=== PATIENT | female | born 1940 | race Caucasian/White ===

== ENCOUNTER → 2024-03-19 | Outpatient (CLI) | payer MEDICARE, BC, SELFPAY ==
[2024-03-19 17:12] LABS: Absolute Neutrophil Count 5.5 X10^3/uL (2.0-7.7); Basophil# 0.06 X10^3/uL; Basophil% 0.6 % (0-1); Eosinophil# 0.34 X10^3/uL; Eosinophils% 3.7 % (0-5); Hematocrit 41.2 % (37-47); Hemoglobin 13.8 g/dL (12.0-15.0); Mean Corp Hgb Conc 33.5 g/dL (32-36); Mean Corpuscular Hgb 29.2 pg (27.0-32.0); Mean Corpuscular Volume 87.3 fL (81-99); Mean Platelet Vol. 9.1 fl (6.2-12.0); Monocyte# 0.87 X10^3/uL; Monocyte% 9.4 % (0-10); NRBC Flagged by Analyzer 0 % (0-5); Neutrophil # 5.45 X10^3/uL (2.7-7.7); Neutrophil % 58.8 % (47-70); Platelet Count 296 K/mm3 (150-450); RBC Distribution Width SD 41.4 fl (35.1-43.9); Red Blood Count 4.72 M/mm3 (4.2-5.4); White Blood Count 9.3 K/mm3 (4.4-11.0)
[2024-03-19 17:46] LABS: ALB/GLOB Ratio 1.1 RATIO (0.9-2.4); AST(SGOT) 13 U/L (15-37); Alanine Aminotransfer ALT/SGPT 17 U/L (13-56); Albumin, Serum 3.8 g/dL (3.2-5.0); Alkaline Phosphatase 98 U/L (45-117); Anion Gap 5 (5-15); BUN 14 mg/dL (7-18); Calcium,Total 9.8 mg/dL (8.5-10.1); Chloride 103 mmol/L (98-107); Creatinine, Serum 0.87 mg/dL (0.55-1.02); EST Glomerular Filtration Rate 66 mL/min (>60); Est Glom Filt Rate - Afr Amer 80 mL/min (>60); Globulin 3.6 g/dL (2.2-4.2); Glucose 97 mg/dL (74-106); Protein, Total 7.4 g/dL (6.4-8.2); Sodium Level 137 mmol/L (136-145)
[2024-03-19 18:18] LABS: Hepatitis C Antibody Non-Reactive (Nonreactive); Vitamin D,25 Hydroxy 73.8 ng/mL
== END | disposition home or self-care (01) ==
LOC: LAB 16:55
PROVIDERS: PCP Internal Medicine; Referring Provider Family Medicine Geriatric Medicine; Visit Provider Family Medicine Geriatric Medicine
DX: Z13.89 Encounter for screening for other disorder (principal); E78.5 Hyperlipidemia, unspecified; E03.9 Hypothyroidism, unspecified; E55.9 Vitamin D deficiency, unspecified
CPT/HCPCS: 36415; 80053; 82306; 84443; 85025; 86803

== ENCOUNTER → 2024-03-31 | Outpatient (CLI) | payer MEDICARE, BC, SELFPAY | END | disposition home or self-care (01) | PROVIDERS: PCP Internal Medicine; Visit Provider Family Medicine Geriatric Medicine | DX: N39.0 Urinary tract infection, site not specified (principal); G31.84 Mild cognitive impairment of uncertain or unknown etiology | CPT/HCPCS: 87086; 87088; 87186 ==

== ENCOUNTER → 2024-04-21 | Outpatient (CLI) | payer MEDICARE, BC, SELFPAY ==
--- NOTE | 2024-04-21 15:15 | MRI_ITS ---
PROCEDURE: BRAIN WITHOUT CONTRAST REASON FOR EXAM: Memory issues. TECHNIQUE: Multiplanar, multisequence MRI of the brain without intravenous gadolinium-based contrast. COMPARISON: None. FINDINGS: There is prominence of the ventricles and sulci indicative of atrophy. There is hyperintense T2/FLAIR signal in the periventricular and subcortical white matter likely related to chronic small vessel ischemic disease. No midline shift, mass effect, or extra-axial fluid collections are identified. No diffusion restriction is identified on diffusion-weighted imaging to suggest acute/subacute ischemic changes. No acute territorial infarction or acute intracranial hemorrhage is present. Optic chiasm and cerebellar tonsils are within normal range. There is flattening of the pituitary gland related to partial empty sella. Bilateral orbits are intact. Major vascular flow voids are present. MRI/Brain without Contrast IMPRESSION: 1. No acute intracranial process. 2. Atrophy. 3. Chronic small vessel ischemic disease. 4. Partial empty sella. Reading Location[id number]
== END | disposition home or self-care (01) ==
LOC: MRI 15:03
PROVIDERS: PCP Family Medicine Geriatric Medicine; Referring Provider Family Medicine Geriatric Medicine; Visit Provider Family Medicine Geriatric Medicine
DX: G31.84 Mild cognitive impairment of uncertain or unknown etiology (principal)
CPT/HCPCS: 70551

== ENCOUNTER → 2024-05-14 | Outpatient (CLI) | payer MEDICARE, BC, SELFPAY ==
--- NOTE | 2024-05-14 15:59 | BD_ITS ---
PROCEDURE: DEXA BONE DENSITY STUDY REASON FOR EXAM: F, age 83 y/o . Postmenopausal. TECHNIQUE: DEXA scan of the lumbar spine and left hip. COMPARISON: None. FINDINGS: Lumbar Spine (L1-L4): g/cm2 (1.102)/T-score (0.4)/Z-score (3.2) findings are suggestive of normal with a low fracture risk. Left Femur Total: g/cm2 (0.862)/T-score (-0.7)/Z-score (1.6) Left Femoral Neck: g/cm2 (0.68)/T-score (-1.5)/Z-score (0.9) BD/Dexa Bone Density Study IMPRESSION: The patient is considered osteopenic as outlined below according to World Alex Organization (WHO) criteria with a low fracture risk. Reading Location: [id number]
== END | disposition home or self-care (01) ==
PROVIDERS: PCP Family Medicine Geriatric Medicine; Referring Provider Family Medicine Geriatric Medicine; Visit Provider Family Medicine Geriatric Medicine
DX: Z78.0 Asymptomatic menopausal state (principal); M85.80 Other specified disorders of bone density and structure, unspecified site
CPT/HCPCS: 77080

== ENCOUNTER → 2024-05-20 | Outpatient (CLI) | payer MEDICARE, BC, SELFPAY ==
--- NOTE | 2024-05-20 17:22 | RAD_ITS ---
PROCEDURE: Lumbar spine radiographs REASON FOR EXAM: PAIN TECHNIQUE: 5 view(s) of the thoracic and lumbar spine. COMPARISON: None. FINDINGS: See impression RAD/L/S Spine Min 4 Views IMPRESSION: Vertebral body heights are within normal limits. Grade 1 anterolisthesis of L3 -4 and L4-5. Mild lower thoracic dextroscoliosis. Moderate/advanced lower lumbar facet arthropathy from L3 through S1. Mild dege nerative changes of the sacroiliac joints. Calcified abdominal aorta. Reading Location: [facility]
== END | disposition home or self-care (01) ==
LOC: POLAB3 17:12 → RAD 17:17
PROVIDERS: PCP Family Medicine Geriatric Medicine; Visit Provider Family Medicine Geriatric Medicine
DX: G30.9 Alzheimer's disease, unspecified (principal); M54.50 Low back pain, unspecified
CPT/HCPCS: 36415; 72110

== ENCOUNTER → 2024-06-03 | Outpatient (CLI) | payer MEDICARE, BC, SELFPAY ==
[2024-06-03 17:33] LABS: Absolute Neutrophil Count 7.4 X10^3/uL (2.0-7.7); Basophil# 0.06 X10^3/uL; Basophil% 0.5 % (0-1); Eosinophil# 0.31 X10^3/uL; Eosinophils% 2.8 % (0-5); Hematocrit 43.7 % (37-47); Hemoglobin 14.4 g/dL (12.0-15.0); Lymphocyte % 22.4 % (19-41); Mean Corpuscular Hgb 29.9 pg (27.0-32.0); Mean Corpuscular Volume 90.7 fL (81-99); Mean Platelet Vol. 9.5 fl (6.2-12.0); Monocyte# 0.79 X10^3/uL; Monocyte% 7.1 % (0-10); NRBC Flagged by Analyzer 0 % (0-5); Neutrophil # 7.44 X10^3/uL (2.7-7.7); Neutrophil % 66.8 % (47-70); Platelet Count 300 K/mm3 (150-450); RBC Distribution Width CV 12.8 % (11.6-14.6); RBC Distribution Width SD 42.2 fl (35.1-43.9); Red Blood Count 4.82 M/mm3 (4.2-5.4); White Blood Count 11.1 K/mm3 (4.4-11.0)
[2024-06-03 20:04] LABS: ALB/GLOB Ratio 1.5 RATIO (0.9-2.4); AST(SGOT) 15 U/L (<=31); Alanine Aminotransfer ALT/SGPT 12 U/L (<=34); Albumin, Serum 4.2 g/dL (3.4-4.8); Alkaline Phosphatase 85 U/L (35-104); Anion Gap 9 (5-15); BUN 19 mg/dL (4-19); BUN/Creat Ratio 21.1 RATIO (10-20); Calcium,Total 10.5 mg/dL (7.6-11.0); Carbon Dioxide 27.3 mmol/L (21.0-32.0); Chloride 103 mmol/L (98-108); Creatinine, Serum 0.88 mg/dL (0.70-1.20); EST Glomerular Filtration Rate 66 (>60); Globulin 2.7 g/dL (2.2-4.2); Glucose 98 mg/dL (70-99); Potassium 4.5 mmol/L (3.3-5.1); Protein, Total 6.9 g/dL (5.9-8.4); Sodium Level 139 mmol/L (133-145); Total Bilirubin 0.21 mg/dL (0.00-1.30)
== END | disposition home or self-care (01) ==
LOC: LAB 16:49
PROVIDERS: PCP Family Medicine Geriatric Medicine; Referring Provider Family Medicine Geriatric Medicine; Visit Provider Family Medicine Geriatric Medicine
DX: R11.0 Nausea (principal)
CPT/HCPCS: 36415; 80053; 85025

== ENCOUNTER 2024-06-14 12:19 | Emergency (ER) | payer MEDICARE, BC, SELFPAY ==
[2024-06-14 12:20] VITALS: BP 154/71; PULSE 73; RESP 16; TEMP 36.6; O2SAT 99; BMI 30.3
--- NOTE | 2024-06-14 12:31 | RAD_ITS ---
PROCEDURE: KNEE 4 OR MORE VIEWS 06/14/2024 REASON FOR EXAM: KNEE pain. TECHNIQUE: 4 views of the left knee COMPARISON: None. FINDINGS: Bones: Prior left total knee arthroplasty. No acute fracture or suspicious osseous lesion. Joints: Total knee arthroplasty in satisfactory alignment. Effusion: No effusion. Soft tissues: Soft tissues are unremarkable. RAD/Knee 4 or More Views IMPRESSION: NEGATIVE KNEE SERIES Reading Location: [id number]
--- NOTE | 2024-06-14 12:33 | RAD_ITS ---
PROCEDURE: KNEE 4 OR MORE VIEWS 06/14/2024 REASON FOR EXAM: FALL TECHNIQUE: 4 views of the right knee COMPARISON: None. FINDINGS: Bones: Prior right total knee arthroplasty. No acute osseous fracture. Mild diffuse osseous demineralization. Joints: Total knee arthroplasty in satisfactory alignment. Effusion: No effusion. Soft tissues: Soft tissues are unremarkable. RAD/Knee 4 or More Views IMPRESSION: NEGATIVE KNEE SERIES Reading Location: [id number]
--- NOTE | 2024-06-14 12:43 | RAD_ITS ---
PROCEDURE: PELVIS 1 OR 2 VIEWS 06/14/2024 REASON FOR EXAM: 83-year-old female, FALL TECHNIQUE: 1 view(s) of the pelvis. COMPARISON: L-spine radiographs 05/20/2024. FINDINGS: Hardware: Prior right total hip arthroplasty. Bones: No acute osseous fracture. No suspicious osseous lesion. 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 Soft tissues: Soft tissues are unremarkable. Other: Stable radiopaque foreign body overlying the right iliac crest. RAD/Pelvis 1 or 2 Views IMPRESSION: NO EVIDENCE OF PELVIC FRACTURE Reading Location: [id number]
[2024-06-14] MEDS: Acetaminophen 500 MG Tablet 1000 MG PO (12:59)
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
[2024-06-14 13:29] VITALS: BP 141/77; PULSE 71; RESP 16; TEMP 36.8; O2SAT 100
== END 2024-06-14 13:30 | disposition home or self-care (01) ==
PROVIDERS: Emergency Provider Surgery; PCP Family Medicine Geriatric Medicine; Visit Provider Surgery
DX: S80.01XA Contusion of right knee, initial encounter (principal); S80.02XA Contusion of left knee, initial encounter; W01.0XXA Fall on same level from slipping, tripping and stumbling without subsequent striking against object, initial encounter; Y93.01 Activity, walking, marching and hiking; Y92.020 Kitchen in mobile home as the place of occurrence of the external cause; Z96.641 Presence of right artificial hip joint; Z96.653 Presence of artificial knee joint, bilateral
CPT/HCPCS: 72170; 73564; 99284

== ENCOUNTER 2024-06-17 14:54 | Outpatient (CLI) | payer MEDICARE, BC, SELFPAY ==
[2024-06-17 15:35] LABS: Absolute Lymphocyte Count 1.94 X10^3/uL (0.83-4.51); Absolute Neutrophil Count 5.3 X10^3/uL (2.0-7.7); Basophil# 0.06 X10^3/uL; Basophil% 0.7 % (0-1); Eosinophil# 0.38 X10^3/uL; Eosinophils% 4.5 % (0-5); Hematocrit 40.1 % (37-47); Hemoglobin 13.5 g/dL (12.0-15.0); Lymphocyte # 1.94 X10^3/ul (0.83-4.51); Lymphocyte % 22.9 % (19-41); Mean Corp Hgb Conc 33.7 g/dL (32-36); Mean Corpuscular Hgb 30.1 pg (27.0-32.0); Mean Corpuscular Volume 89.3 fL (81-99); Mean Platelet Vol. 9.5 fl (6.2-12.0); Monocyte# 0.82 X10^3/uL; Monocyte% 9.7 % (0-10); NRBC Flagged by Analyzer 0 % (0-5); Neutrophil # 5.26 X10^3/uL (2.7-7.7); Platelet Count 267 K/mm3 (150-450); RBC Distribution Width CV 12.8 % (11.6-14.6); Red Blood Count 4.49 M/mm3 (4.2-5.4); White Blood Count 8.5 K/mm3 (4.4-11.0)
[2024-06-17 16:42] LABS: ALB/GLOB Ratio 1.4 RATIO (0.9-2.4); AST(SGOT) 16 U/L (<=31); Alanine Aminotransfer ALT/SGPT 11 U/L (<=34); Albumin, Serum 4.1 g/dL (3.4-4.8); Alkaline Phosphatase 81 U/L (35-104); Anion Gap 10 (5-15); BUN 18 mg/dL (4-19); BUN/Creat Ratio 20.3 RATIO (10-20); Calcium,Total 10.3 mg/dL (7.6-11.0); Carbon Dioxide 25.6 mmol/L (21.0-32.0); Chloride 101 mmol/L (98-108); Creatinine, Serum 0.88 mg/dL (0.70-1.20); EST Glomerular Filtration Rate 66 (>60); Globulin 2.8 g/dL (2.2-4.2); Glucose 92 mg/dL (70-99); Potassium 4.7 mmol/L (3.3-5.1); Protein, Total 6.9 g/dL (5.9-8.4); Sodium Level 137 mmol/L (133-145); Total Bilirubin 0.25 mg/dL (0.00-1.30); Vitamin D,25 Hydroxy 83.9 ng/mL (30-100)
== END 2024-06-17 23:59 | disposition home or self-care (01) ==
LOC: LAB 14:56
PROVIDERS: PCP Family Medicine Geriatric Medicine; Referring Provider Family Medicine Geriatric Medicine; Visit Provider Family Medicine Geriatric Medicine
DX: E55.9 Vitamin D deficiency, unspecified (principal); R53.83 Other fatigue
CPT/HCPCS: 36415; 80053; 82306; 84443; 85025

== ENCOUNTER → 2024-10-20 | Outpatient (CLI) | payer MEDICARE, BC, SELFPAY ==
--- OUTSIDE RECORDS SUMMARY | 2024-10-20 17:41 | XMS RPT_ITS | CCD ---
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 Constantine Umana Attending Provider [phone] Oziel CORONA, Dr. Constantine Umana Referring Provider Oziel CORONA, Dr. Constantine Umana Primary Care Provider Alicia AGUILERA, Dr. Garcia Emergency Provider ASIA SPENCE MD Primary Care Unavailable ASIA SPENCE MD Consulting Unavailable ASIA SPENCE MD Admitting Unavailable ASIA SPENCE MD Attending Unavailable PROVIDER, UNKNOWN Consulting Unavailable PROVIDER, UNKNOWN Consulting Unavailable ASIA SPENCE MD Primary Care Unavailable ASIA SPENCE MD Consulting Unavailable ASIA SPENCE MD Admitting Unavailable ASIA SPENCE MD Attending Unavailable PROVIDER, UNKNOWN Consulting Unavailable PROVIDER, UNKNOWN Consulting Unavailable ASIA SPENCE MD Primary Care Unavailable ASIA SPENCE MD Consulting Unavailable ASIA SPNECE MD Admitting Unavailable ASIA SPENCE MD Attending Unavailable PROVIDER, UNKNOWN Consulting Unavailable PROVIDER, UNKNOWN Consulting Unavailable ASIA SPENCE MD Consulting Unavailable FROYLAN LOUIS DR Admitting Unavailable FROYLAN LOUIS DR Attending Unavailable FROYLAN LOUIS DR Primary Care Unavailable PROVIDER, UNKNOWN Consulting Unavailable PROVIDER, UNKNOWN Consulting Unavailable ASIA SPENCE MD Consulting Unavailable FROYLAN LOUIS DR Admitting Unavailable FROYLAN LOUIS DR Attending Unavailable FROYLAN LOUIS DR Primary Care Unavailable PROVIDER, UNKNOWN Consulting Unavailable PROVIDER, UNKNOWN Consulting Unavailable ASIA SPENCE MD Consulting Unavailable FROYLAN LOUIS DR Admitting Unavailable FROYLAN LOUIS DR Attending Unavailable FROYLAN LOUIS DR Primary Care Unavailable PROVIDER, UNKNOWN Consulting Unavailable PROVIDER, UNKNOWN Consulting Unavailable ASIA SPENCE MD Consulting Unavailable FROYLAN LOUIS DR Primary Care Unavailable FROYLAN LOUIS DR Admitting Unavailable FROYLAN LOUIS DR Attending Unavailable VERNELL BUSTOS MD Referring Unavailable PROVIDER, UNKNOWN Consulting Unavailable PROVIDER, UNKNOWN Consulting Unavailable ANDREW, MILTON C Admitting Unavailable ASIA SPENCE MD Referring Unavailable ASIA SPENCE MD Consulting Unavailable ANDREW, MILTON C Primary Care Unavailable ANDREW, MILTON C Attending Unavailable PROVIDER, UNKNOWN Consulting Unavailable PROVIDER, UNKNOWN Consulting Unavailable ALEJANDRA, CECY PAC Attending Unavailable ALEJANDRA CECY PAC Admitting Unavailable ASIA SPENCE MD Consulting Unavailable ALEJANDRA, CECY PAC Primary Care Unavailable PROVIDER, UNKNOWN Consulting Unavailable PROVIDER, UNKNOWN Consulting Unavailable ASIA SPENCE MD Primary Care Unavailable ASIA SPENCE MD Consulting Unavailable ASIA SPENCE MD Admitting Unavailable ASIA SPENCE MD Attending Unavailable PROVIDER, UNKNOWN Consulting Unavailable PROVIDER, UNKNOWN Consulting Unavailable ASIA SPENCE MD Primary Care Unavailable ASIA SPENCE MD Consulting Unavailable ASIA SPENCE MD Admitting Unavailable ASIA SPENCE MD Attending Unavailable PROVIDER, UNKNOWN Consulting Unavailable PROVIDER, UNKNOWN Consulting Unavailable ASIA SPENCE MD Consulting Unavailable ASIA SPENCE MD Primary Care Unavailable ASIA SPENCE MD Attending Unavailable ASIA SPENCE MD Admitting Unavailable PROVIDER, UNKNOWN Consulting Unavailable PROVIDER, UNKNOWN Consulting Unavailable ASIA SPENCE MD Primary Care Unavailable ASIA SPENCE MD Consulting Unavailable ASIA SPENCE MD Attending Unavailable ASIA SPENCE MD Admitting Unavailable PROVIDER, UNKNOWN Consulting Unavailable PROVIDER, UNKNOWN Consulting Unavailable ASIA SPENCE MD Consulting Unavailable ASIA SPENCE MD Primary Care Unavailable ASIA SPENCE MD Attending Unavailable ASIA SPENCE MD Admitting Unavailable PROVIDER, UNKNOWN Consulting Unavailable PROVIDER, UNKNOWN Consulting Unavailable ASIA SPENCE MD Primary Care Unavailable ASIA SPENCE MD Consulting Unavailable ASIA SPENCE MD Admitting Unavailable ASIA SPENCE MD Attending Unavailable PROVIDER, UNKNOWN Consulting Unavailable PROVIDER, UNKNOWN Consulting Unavailable ASIA SPENCE MD Consulting Unavailable WILBER BOYD MD Attending Unavailable WILBER BOYD MD Admitting Unavailable ASIA SPENCE MD Referring Unavailable WILBER BOYD MD Primary Care Unavailable PROVIDER, UNKNOWN Consulting Unavailable PROVIDER, UNKNOWN Consulting Unavailable ASIA SPENCE MD Primary Care Unavailable ASIA SPENCE MD Consulting Unavailable ASIA SPENCE MD Admitting Unavailable ASIA SPENCE MD Attending Unavailable PROVIDER, UNKNOWN Consulting Unavailable PROVIDER, UNKNOWN Consulting Unavailable Oziel, Constantine Chi Attending Unavailable Reza Liao Primary Care Unavailable Oziel, Constantine Chi Attending Unavailable Oziel, Constantine Chi Referring Unavailable Oziel, Constantine Chi Primary Care Unavailable Oziel, Constantine Chi Referring Unavailable Oziel, Constantine Chi Primary Care Unavailable Oziel, Constantine Chi Attending Unavailable Oziel, Constantine Chi Primary Care Unavailable Oziel, Constantine Chi Attending Unavailable Oziel, Constantine Chi Referring Unavailable Oziel, Constantine Chi Primary Care Unavailable Oziel, Constantine Chi Attending Unavailable Violetta Rodrigueza Attending Unavailable Jean-Claudeys Ghislaine Referring Unavailable Lona Constantino Primary Care Unavailable Jose Vargas Attending Unavailabl e Oziel, Constantine Chi Primary Care Unavailable Oziel, Constantine Chi Referring Unavailable Oziel, Constantine Chi Primary Care Unavailable Oziel, Constantine Chi Attending Unavailable Oziel, Constantine Chi Attending Unavailable Reza Liao Primary Care Unavailable Oziel, Constantine Chi Referring Unavailable Allergies Allergy Classification Reported Allergen(s) Allergy Type Date of Onset Reaction(s) Facility (3 sources) Sulfonamides (Antibiotic) Drug allergy (disorder) [facility] Repository (2 sources) ANESTHETIC, AMIDE Drug allergy (disorder) [facility] Repository (1 source) predniSONE Drug Allergy 5 Nausea [place] (1 source) Sulfonamides (Antibiotic) Allergy to substance 5 PT UNSURE OF REACTION [place] (1 source) predniSONE Drug Allergy 5 [place] Repository (1 source) Sulfonamides (Antibiotic) Drug allergy (disorder) 5 [place] Repository (1 source) Anesthetics - Amide Type - Select A Drug allergy (disorder) 5 [place] Repository Problems Active Problems Problem Classification Problem Date Documented Date Episodic/Chronic Conditions associated with dizziness or vertigo (1 source) Dizziness and giddiness; Translations: [Dizziness and giddiness] Onset: 10-14-2024 Episodic Delirium, dementia, and amnestic and other cognitive disorders (1 source) Alzheimer's disease, unspecified; Translations: [Alzheimer's disease, unspecified] Onset: 05-28-2024 Chronic E Codes: Fall (1 source) Unspecified fall, initial encounter; Translations: [Accident due to mechanical fall without injury] 06-14-2024 Episodic Malaise and fatigue (2 sources) Weakness; Translations: [Other fatigue] Onset: 07-04-2024 Episodic Osteoarthritis (1 source) Unilateral primary osteoarthritis, right hip; Translations: [Unilateral primary osteoarthritis, right hip] Onset: 10-09-2023 Chronic Osteoporosis (3 sources) Age-related osteoporosis without current pathological fracture; Translations: [Age-related osteoporosis without current pathological fracture] Onset: 09-18-2023 Chronic Other hereditary and degenerative nervous system conditions (1 source) Mild cognitive impairment, so stated; Translations: [Mild cognitive impairment of uncertain or unknown etiology] Onset: 05-06-2024 Chronic Other nervous system disorders (1 source) Unsteadiness on feet; Translations: [Unsteadiness on feet] Onset: 10-14-2024 Episodic Superficial injury; contusion (1 source) Contusion of knee; Translations: [Contusion of unspecified knee, initial encounter] 06-14-2024 Episodic Thyroid disorders (4 sources) Hypothyroidism, unspecified; Translations: [Hypothyroidism, unspecified] Onset: 09-21-2023 Chronic Unclassified (2 sources) Low back pain, unspecified; Translations: [Low back pain, unspecified] Onset: 06-11-2024 Unclassified (1 source) Other intervertebral disc degeneration, 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; Translations: [Other intervertebral disc degeneration, 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] Onset: 06-11-2024 Past or Other Problems Problem Classification Problem Date Documented Da te Episodic/Chronic Cardiac dysrhythmias (3 sources) Palpitations; Translations: [Palpitations] Onset: 02-01-2024 Episodic Gastrointestinal hemorrhage (1 source) Hemorrhage of anus and rectum; Translations: [Hemorrhage of anus and rectum] Onset: 02-26-2024 Episodic Genitourinary symptoms and ill-defined conditions (3 sources) Unspecified symptoms and signs involving the genitourinary system; Translations: [Unspecified symptoms and signs involving the genitourinary system] Onset: 02-26-2024 Episodic Nausea and vomiting (1 source) Nausea; Translations: [Nausea] Onset: 06-08-2024 Episodic Other aftercare (1 source) 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; Translations: [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] Onset: 10-09-2023 Episodic Other injuries and conditions due to external causes (1 source) Unspecified injury of unspecified lower leg, initial encounter; Translations: [Unspecified injury of unspecified lower leg, initial encounter] Onset: 06-18-2024 Episodic Other screening for suspected conditions (not mental disorders or infectious disease) (1 source) Encounter for screening for other disorder; Translations: [Encounter for screening for other disorder] Onset: 04-09-2024 Episodic Residual codes; unclassified (1 source) Asymptomatic menopausal state; Translations: [Asymptomatic menopausal state] Onset: 05-25-2024 Episodic Unclassified (1 source) Low back pain, unspecified; Translations: [Low back pain, unspecified] Onset: 06-11-2024 Urinary tract infections (1 source) Urinary tract infection, site not specified; Translations: [Urinary tract infection, site not specified] Onset: 04-21-2024 Episodic Results Test Name Value Interpretation Reference Range Facility URINE CULTURE [CCL]on 2024 Bacteria identified Cx Nom (U) URCUL See Results Below See Below CULTURE, URINE ESCHERICHIA COLI >=100,000 CFU/ml Escherichia coli ORGANISM: ESCHERICHIA COLI ANTIBIOTIC LISA DILUTN LISA INTERP Ampicillin 4 Susceptible Cefazolin <=4 Susceptible For uncomplicated urinary tract infections, cefazolin results can be used to pre Ceftriaxone <=1 Susceptible Cefepime <=1 Susceptible Ertapenem <=0.5 Susceptible Meropenem <=0.25 Susceptible Ampicillin/Sulbact <=2 Susceptible Piperacillin/Tazobac <=4 Susceptible Gentamicin <=1 Susceptible Tobramycin <=1 Susceptible Trimeth sulfameth <=20 Susceptible Ciprofloxacin <=0.25 Susceptible Nitrofurantoin <=16 Susceptible This test was developed and its performance characteristics determined by the [facility]'s [facility] [place] ([facility]). It has not been cleared or approved by the FDA. [facility] is regulated under CLIA as qualified to perform high-complexity testing. This test is used for clinical purposes. It should not be regarded as investigational or for research. SOURCE: Urine (Nonspecific) [facility] [address] [place] [address] Ethan Pedersen III, M.D. [id number] SEND TO IC YES Normal [facility] Comment on above: Performed By: #### 2 [id number] ####[facility],[address] [place] [address] 10571 Bacteria Ur Culton 5 Bacteria identified Cx Nom (U) ORGANISM ID: 1 >=100,000 CFU/ml Escherichia coli ORGANISM ID: 1 (ESCHERICHIA COLI) ANTIBIOTIC INTERPRETATION LISA STATUS REFERENCE RANGE Ampicillin S 4 F Susceptible <=8 , Intermediate >8 , Resistant >16 Cefazolin S <=4 F Susceptible 0-16 , Intermediate <0 or >16 , Resistant >16 For uncomplicated urinary tract infections, cefazolin results can be used to predict susceptibility or resistance to cephalexin. Ceftriaxone S <=1 F Susceptible <=1 , Intermediate >1 , Resistant >=4 Cefepime S <=1 F Susceptible <=2 , Susceptible-Dose Dependent >2 , Resistant >=16 Ertapenem S <=0.5 F Susceptible <=0.5 , Intermediate >.5 , Resistant >1 Meropenem S <=0.25 F Susceptible <=1 , Intermediate >1 , Resistant >2 Ampicillin/Sulbact S <=2 F Susceptible <=8 , Intermediate >8 , Resistant >16 Piperacillin/Tazobac S <=4 F Susceptible <16 , Susceptible-Dose Dependent >=16 , Resistant >=32 Gentamicin S <=1 F Susceptible <=2 , Intermediate >2 , Resistant >=8 Tobramycin S <=1 F Susceptible <4 , Intermediate >=4 , Resistant >=8 Trimeth sulfameth S <=20 F Susceptible <=40 , Resistant >40 Ciprofloxacin S <=0.25 F Susceptible <0.5 , Intermediate >=.5 , Resistant >=1 Nitrofurantoin S <=16 F Susceptible <=32 , Intermediate >32 , Resistant >64 Abnormal [facility] Comment on above: Performed By: #### 6 30-4 #### [facility] CLIA [id number] [address] [place] [address] OF [facility] CBC + DIFFon 09-02-2024 Baso # 0.03 x10EE3/UL Normal 0.00 - 0.10 [facility] Comment on above: Performed By: #### 2 94667 #### [place] [id number] Basophils/100 WBC (Bld) 0.4 % Normal 0.0 - 2.0 [facility] Comment on above: Performed By: #### 2 72459 #### [facility],[address] [place] [address] CBC + DIFF Normal [facility] Comment on above: Result Comment: CBC- COMPLETE BLOOD COUNT Performed By: #### 2 99820 #### [facility],[address] [place] [address] EO # 0.30 x10EE3/UL Normal 0.00 - 0.50 [facility] Comment on above: Performed By: #### 2 28508 #### [facility],[address] [place] [address] 22035 Eosinophils/100 WBC (Bld) 3.3 % Normal 0.0 - 7.0 [facility] Comment on above: Performed By: #### 2 54440 #### [facility],[address] [place] [address] Erythrocyte distribution width (RBC) [Ratio] 13.3 % Normal 12.0 - 15.6 [facility] Comment on above: Performed By: #### 2 10180 #### [facility],[address] [place] [address] Hematocrit (Bld) [Volume fraction] 39.9 % Normal 34.0 - 46.0 [facility] Comment on above: Performed By: #### 2 01667 #### [facility],[address] [place] [address] Hemoglobin (Bld) [Mass/Vol] 14.1 g/dL Normal 12.0 - 16.0 [facility] Comment on above: Performed By: #### 2 77950 #### [facility],[address] [place] [address] Lymph # 2.09 x10EE3/UL Normal 0.80 - 2.80 [facility] Comment on above: Performed By: #### 2 48148 #### [facility],[address] [place] [address] Lymphocytes/100 WBC (Bld) 22.7 % Normal 20.0 - 45.0 [facility] Comment on above: Performed By: #### 2 89076 #### [facility],[address] [place] [address] MANUAL DIFF N/A Normal [facility] Comment on above: Performed By: #### 2 09055 #### [facility],[address] [place] [address] MCH (RBC) [Entitic mass] 31 pg Normal 27 - 33 [facility] Comment on above: Performed By: #### 2 20331 #### [facility] [place] [address] MCHC 35 X10 3 Normal 32 - 36 [facility] Comment on above: Performed By: #### 2 93083 #### [facility],[address] [place] [address] MCV (RBC) [Entitic vol] 87 fL Normal 80 - 99 [facility] Comment on above: Performed By: #### 2 40878 #### [facility],[address] [place] [address] Holt # 0.81 x10EE3/UL Normal 0.20 - 1.00 [facility] Comment on above: Performed By: #### 2 42058 #### [facility],[address] [place] [address] MONOS % 8.8 % Normal 0.0 - 10.0 [facility] Comment on above: Performed By: #### 2 29697 #### [facility],[address] [place] [address] Morphology Pasquale (Bld) [Interp] N/A Normal [facility] Comment on above: Performed By: #### 2 29677 #### [facility],[address] [place] [address] Neut # 5.95 x10EE3/UL Normal 1.50 - 7.10 [facility] Comment on above: Performed By: #### 2 96185 #### [facility],[address] [place] [address] Neutrophils/100 WBC (Bld) 64.8 % Normal 46.0 - 76.0 [facility] Comment on above: Performed By: #### 2 23826 #### [place] [address] PLATELET 295 x10EE3/UL Normal 150 - 450 [facility] Comment on above: Performed By: #### 2 76387 #### [facility],[address],[place] [address] Platelet mean volume (Bld) [Entitic vol] 7.3 fL Normal 6.6 - 10.5 [facility] Comment on above: Result Comment: AUTO MATED DIFFERENTIAL Performed By: #### 2 34958 #### [facility],[address] [place] [address] 53969 RBC 4.56 x 10EE6/UL Normal 4.10 - 5.30 [facility] Comment on above: Performed By: #### 2 59224 #### [facility],[address] [place] [address] 12370 WBC 9.2 x 10EE3/UL Normal 4.5 - 10.8 [facility] Comment on above: Performed By: #### 2 11614 #### [facility],[address] [place] [address] 56093 CMP with eGFRon 09-02-2024 AGE 83 years Normal [facility] Comment on above: Performed By: #### 2 65855 #### [facility],[address] [place] [address] 18338 Albumin [Mass/Vol] 3.8 g/dL Normal 3.4 - 5.0 [facility] Comment on above: Performed By: #### 2 81194 #### [facility],[address] [place] [address] 24923 Albumin/Globulin [Mass ratio] 1.0 {ratio} Normal 0.9 - 1.6 [facility] Comment on above: Performed By: #### 2 65744 #### [facility],[address] [place] [address] 08672 ALK PHOS 88 U/L Normal 46 - 116 [facility] Comment on above: Performed By: #### 2 00034 #### [facility],[address] [place] [address] 48223 ALT [Catalytic activity/Vol] 26 U/L Normal 16 - 63 [facility] Comment on above: Performed By: #### 2 91294 #### [facility],[address] [place] [address] 56044 Anion gap [Moles/Vol] 12 mmol/L Normal 10 - 20 [facility] Comment on above: Performed By: #### 2 82004 #### [facility],[address] [place] [address] 53780 AST [Catalytic activity/Vol] 34 U/L Normal 13 - 39 [facility] Comment on above: Performed By: #### 2 89795 #### [facility],[address] [place] [address] 08033 B/C RATIO 23 ratio Normal 0 - 30 [facility] Comment on above: Performed By: #### 2 26268 #### [facility],[address] [place] [address] 48707 Bilirubin [Mass/Vol] 0.6 mg/dL Normal 0.2 - 1.0 [facility] Comment on above: Performed By: #### 2 15207 #### [facility],[address] [place] [address] 48649 Calcium [Mass/Vol] 9.6 mg/dL Normal 8.5 - 10.1 [facility] Comment on above: Performed By: #### 2 97775 #### [facility],[address] [place] [address] 93671 Chloride [Moles/Vol] 101 mmol/L Normal 98 - 107 [facility] Comment on above: Performed By: #### 2 12449 #### [facility],[address] [place] [address] 20515 CMP with eGFR Normal [facility] Comment on above: Result Comment: COMP REHENSIVE METABOLIC PANEL Performed By: #### 2 56982 #### [facility],[address] [place] [address] 03125 CO2 [Moles/Vol] 25.8 mmol/L Normal 21.0 - 32.0 [facility] Comment on above: Performed By: #### 2 76454 #### [facility],[address] [place], [place] [id number] Creatinine [Mass/Vol] 0.74 mg/dL Normal 0.55 - 1.02 [facility] Comment on above: Performed By: #### 2 42171 #### [facility],[address] [place], [place] [id number] GFR/1.73 sq M.predicted among non-blacks MDRD (S/P/Bld) [Vol rate/Area] mL/min/{1.73_m2} Normal 60 - 999 [facility] Comment on above: Performed By: #### 2 87471 #### [facility],[address] [place] [address] Result Comment: ACCO RDING TO THE NATIONAL KIDNEY DISEASE EDUCATION PROGRAM(NKDE), A NORMAL eGFR IS A VALUE GREATER THAN OR EQUAL TO 60 ML/MIN/1.73 SQ METERS. CHRONIC KIDNEY DISEASE: <60mL/MIN/1.73 SQ METERS KIDNEY FAILURE: <15mL/MIN/1.73 SQ METERS THIS TEST SHOULD ONLY BE USED FOR PATIENTS 18 YEARS OF AGE AND OLDER. Globulin (S) [Mass/Vol] 3.9 g/dL High 1.5 - 3.8 [facility] Comment on above: Performed By: #### 2 48427 #### [facility],[address] [place] [address] 09425 Glucose [Mass/Vol] 84 mg/dL Normal 74 - 106 [facility] Comment on above: Performed By: #### 2 75489 #### [facility],[address] [place] [address] 19499 Potassium [Moles/Vol] 5.4 mmol/L High 3.5 - 5.1 [facility] Comment on above: Performed By: #### 2 21470 #### [facility],[address] [place], [place] [id number] Protein [Mass/Vol] 7.7 g/dL Normal 6.4 - 8.2 [facility] Comment on above: Performed By: #### 2 41459 #### [facility],[address] [place] [address] 56459 Sodium [Moles/Vol] 133 mmol/L Low 136 - 145 [facility] Comment on above: Performed By: #### 2 30324 #### [facility],[address] [place] [address] 93493 Urea nitrogen [Mass/Vol] 17 mg/dL Normal 7 - 18 [facility] Comment on above: Performed By: #### 2 26989 #### [facility],[address] [place] [address] 41435 D-DIMER, QUANTITATIVEon 08-11 D-DIMER QUANT <200 Normal 0 - 230 [facility] Comment on above: Performed By: #### 2 84836 #### [facility],[address] [place] [address] 03285 D-DIMER, QUANTITATIVE Normal [facility] Comment on above: Result Comment: JAQUAN T D-DIMER Performed By: #### 2 01849 #### [facility],[address] [place] [address] 27275 ED MED ADMINISTRATION DETAIL on 09-02-2024 ED MED ADMINISTRATION DETAIL Transport Medic Medication Administration [address] [address] [phone] 09/02/2024 Patient: HANNAH KERNS Sex: Female : 1940 Age: 83y MEASUREMENTS: Wt: 82.1 kg, Ht/Gurvinder: 64.0 in, BMI: 31.07 ALLERGIES: Sulfa Antibiotics, prednisone Medication Ordered Medication Administration Date/Time of Normal [facility] ED NURSES CLINICAL NOTEon ED NURSES CLINICAL NOTE Nurse Narrative Nurse Clinical [address] [address] [phone] 09/02/2024 11:10:00 Patient: HANNAH KERNS Sex: Female : 1940 Age: 83y Disposition: Discharge to Home Disposition Decision Time: 13:11 09/02/2024 Departure Time: 13:14 09/02/2024 TRIAGE Arrived by private vehicle. Historian: (patient). Primary physician (Oziel). Triage time: 11:16 09/02/2024. Chief Complaint: PAINFUL URINATION, URGENCY and FREQUENCY. Onset. (10 days ago). The patient has had flank pain, difficulty breathing and back pain. Reports experiencing sweating episodes. Treatment K 12 PRINCIPAL: (AZO). SEPSIS SCREEN: NEGATIVE. SIRS criteria negative. -- 11:09/02/24 EDT Carli Dodd R.N. 11:09/02/24. BP: 160/85 MAP: 110. HR: 86. RR: 16. O2 saturation: 93% Temperature: 98.1 F. Pain level now 5/10. -- 11:09/02/24 EDT Carli Dodd R.N. Acuity: LEVEL 4. 11:09/02/24. -- 11:09/02/24 EDT Carli Dodd R.N. Measurements: 11:09/02/24 Wt: 82.1 kg, Ht/Gurvinder: 64.0 in, BMI: 31.07 -- 11:09/02/24 EDT Carli Dodd R.N. 1 of 4 Nurse Narrative Medications: rivastigmine 9.5 mg/24 hour transdermal patch: 1 patch once a day. -- 11:09/02/24 EDT Carli Dodd R.N. levothyroxine 88 mcg tablet: 1 tablet every morning. -- 11:09/02/24 EDT Carli Dodd R.N. buspirone 5 mg tablet: 1 tablet as directed as needed. -- 11:09/02/24 EDT Carli Dodd R.N. bupropion HCl SR 150 mg tablet,12 hr sustained-release: 1 tablet once a day. -- 11:09/02/24 EDT Carli Dodd R.N. memantine 10 mg tablet: 1 tablet twice a day. -- 11:09/02/24 EDT Carli Dodd R.N. Premarin 0.625 mg/gram vaginal cream -- 11:33 09/02/24 EDT Carli Dodd R.N. rivastigmine 13.3 mg/24 hour transdermal patch -- 11:09/02/24 EDT Carli Dodd R.N. 11:16 09/02/24. [facility] -- 11:09/02/24 EDT Carli Dodd R.N. Allergies: Sulfa Antibiotics -- 11:09/02/24 EDT Carli Dodd R.N. prednisone -- 11:09/02/24 EDT Carli Dodd R.N. Problems: leaking aortic valve -- 11:09/02/24 EDT Carli Dodd R.N. Dementia -- 11:09/02/24 EDT Carli Dodd R.N. Hypothyroidism -- 11:09/02/24 EDT Carli Dodd R.N. Anxiety disorder -- 11:09/02/24 EDT Carli Dodd R.N. Surgeries: Hip Surgery. Right -- 11:09/02/24 EDT Carli Dodd R.N. Hysterectomy -- 11:09/02/24 EDT Carli Dodd R.N. Knee Surgery. Bilateral -- 11:09/02/24 EDT Carli Dodd R.N. History 11:09/02/24. PAST MEDICAL HX: Immunizations: up-to-date. SOCIAL HX: Never smoker. No alcohol use or drug use. The patient has not traveled outside the [place] 2 of 4 Nurse Narrative Infectious disease exposure: No infectious disease exposure. ABUSE ASSESSMENT: The patient answered yes to the question(s) Do you feel safe in your home? and no to the question(s) Are you afraid to go home?. SELF HARM ASSESSMENT: Self harm assessment was performed. The patient answered no to the question(s) Have you recently felt down, depressed, or hopeless? and Do you have thoughts of harming or killing yourself?. FALL RISK ASSESSMENT: Fall risk assessment completed. Risk factors identified include patient age greater than 65 years. -- 11:26 09/02/24 EDT Carli Dodd R.N. Interventions 11:26 09/02/24. Advanced care plan (Full code). -- 11:26 09/02/24 EDT Carli Dodd R.N. PHYSICAL ASSESSMENT 11:30 09/02/24. Ambulatory to room. GENERAL / NEURO / PSYCH: Alert. Oriented X 4. Appears in no acute distress. HEENT: Mucous membranes are pink. RESPIRATORY: Respirations not labored. GI / : Pain with urination. The patient has had frequency of urination. Urgency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 did not hit her head. No LOC. Denies any neck pain. Differential diagnosis includes but is not limited to bilateral knee contusions, fracture, sprain. Given this was purely mechanical fall I do not think any laboratory workup is needed. No need for CT head or neck. Patient originally requested narcotics but then declined. Tylenol given. X-rays of the bilateral knees as well as pelvic x-ray was personally reviewed and interpreted by me, ED physician. No fracture or dislocation. Patient's hardware in correct placement. Radiology agrees. Has arthrosis. On reevaluation, patient's pain has improved with Tylenol. She was able to ambulate in the emergency department without difficulty. She was offered a walker but states that she has 1 at home as well as a cane that she can use if she needs. Patient was educated on RICE therapy. Tylenol ibuprofen as needed for pain. Follow-up with PCP. She confirmed understand the plan. Patient stable to discharge home. Impression: 1. Bilateral knee contusion 2. Mechanical fall Radiography Diagnostic Testing: Clinical Impression(s) from Imaging Studies Knee X-Ray 06/14/24 12:31 IMPRESSION: NEGATIVE KNEE SERIES Reading Location: [facility] Knee X-Ray 06/14/24 12:33 IMPRESSION: NEGATIVE KNEE SERIES Reading Location: [facility] Pelvis X-Ray 06/14/24 12:43 IMPRESSION: NO EVIDENCE OF PELVIC FRACTURE Electron (more content not included)... Normal [facility] Knee 4 or More Viewson 06-14 Knee 4 or More Views [facility] Imaging Services [address] [place] [place] [address] Knee 4 or More Views MR#: [id number] Acct: [id number] Name: HANNAH KERNS Rep #: [id number] : 1940 F 83 From: Tamy [place], MD PCP: Dr. Constantine Ludwig MD Status: REG ER Study: Knee 4 or More Views Date of Exam: 06/14/24 Exam# [id number] Ordering Dr: Jose Vargas DO PROCEDURE: KNEE 4 OR MORE VIEWS 06/14/2024 REASON FOR EXAM: FALL TECHNIQUE: 4 views of the right knee COMPARISON: None. FINDINGS: Bones: Prior right total knee arthroplasty. No acute osseous fracture. Mild diffuse osseous demineralization. Joints: Total knee arthroplasty in satisfactory alignment. Effusion: No effusion. Soft tissues: Soft tissues are unremarkable. RAD/Knee 4 or More Views IMPRESSION: NEGATIVE KNEE SERIES Reading Location: [facility] CC: Dr. Jose Vargas DO; Dr. Constantine Ludwig MD [employer] Machine Operator: Signed Normal [facility] Knee 4 or More Views [facility] Imaging Services [address] [place] [address] Knee 4 or More Views MR#: [id number] Acct: [id number] Name: HANNAH KERNS Rep #: [id number] : 1940 F 83 From: Tamy [place], MD PCP: Dr. Constantine Ludwig MD Status: REG ER Study: Knee 4 or More Views Date of Exam: 06/14/24 Exam# [id number] Ordering Dr: Jose Vargas DO PROCEDURE: KNEE 4 OR MORE VIEWS 06/14/2024 REASON FOR EXAM: KNEE pain. TECHNIQUE: 4 views of the left knee COMPARISON: None. FINDINGS: Bones: Prior left total knee arthroplasty. No acute fracture or suspicious osseous lesion. Joints: Total knee arthroplasty in satisfactory alignment. Effusion: No effusion. Soft tissues: Soft tissues are unremarkable. RAD/Knee 4 or More Views IMPRESSION: NEGATIVE KNEE SERIES Reading Location: [facility] CC: Dr. Jose Vargas DO; Dr. Constantine Ludwig MD [employer] Machine Operator: Signed [facility] Pelvis 1 or 2 Viewson 2024 Pelvis 1 or 2 Views [facility] Imaging Services [address] [place] [id number] Pelvis 1 or 2 Views MR#: [id number] Acct: [id number] Name: HANNAH KERNS Rep #: [id number] : 1940 F 83 From: Tamy [place], MD PCP: Dr. Constantine Ludwig MD Status: REG ER Study: Pelvis 1 or 2 Views Date of Exam: 06/14/24 Exam# [id number] Ordering Dr: Jose Vargas DO PROCEDURE: PELVIS 1 OR 2 VIEWS 06/14/2024 REASON FOR EXAM: 83-year-old female, FALL TECHNIQUE: 1 view(s) of the pelvis. COMPARISON: L-spine radiographs 05/20/2024. FINDINGS: Hardware: Prior right total hip arthroplasty. Bones: No acute osseous fracture. No suspicious osseous lesion. 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 Soft tissues: Soft tissues are unremarkable. Other: Stable radiopaque foreign body overlying the right iliac crest. RAD/Pelvis 1 or 2 Views IMPRESSION: NO EVIDENCE OF PELVIC FRACTURE Reading Location: [facility] CC: Dr. Jose Vargas DO; Dr. Constantine Ludwig MD [employer] Operator: Signed [facility] Absolute neutrophil countOrd ered By: Constantine Ludwig on 06-03-2024 Neutrophils (Bld) [#/Vol] 7.4 10*3/uL 2.0-7.7 [facility] Anion gap in Serum or Plasma Ordered By: Constantine Ludwig on 06-03-2024 Anion gap [Moles/Vol] 9 mmol/L 07-24 [facility] BUN/creatinine ratioOrdered By: Constantine Oziel on 06-03-2024 Urea nitrogen/Creatinine [Mass ratio] 21.1 mg/mg High 10- [facility] Basophil percentageOrdered B y: Constantine Oziel on 06-03-2024 Basophils/100 WBC (Bld) 0.5 % 0- [facility] Bilirubin, totalOrdered By: Constantine Ludwig on 06-03-2024 Bilirubin [Mass/Vol] 0.21 mg/dL 0.00-1.30 [facility] CBC W/Diff, Automatedon 05-11 Absolute Lymph 2.50 X10 3/uL Normal 0.83-4.51 [facility] Comment on above: Performed By: #### L 3410.9999, M100.2199 #### [facility] [address] [place], [address] Absolute Neut 7.4 X10 3/uL Normal 2.0-7.7 [facility] Comment on above: Performed By: #### L 3410.9999, M100.0 #### [facility] [address] [place], [address] Basophils/100 WBC (Bld) 0.5 % Normal 0-1 [facility] Comment on above: Performed By: #### L 3410.9999, M100.2200 #### [facility] [address] [place], [address] Eosinophils/100 WBC (Bld) 2.8 % Normal 0-5 [facility] Comment on above: Performed By: #### L 3410.9999, M100.2200 #### [facility] [address] [place], [address] Erythrocyte distribution width (RBC) [Ratio] 12.8 % Normal 11.6-14.6 [facility] Comment on above: Performed By: #### L 3410.9999, #### [facility] [address] [place], [address] Hematocrit (Bld) [Volume fraction] 43.7 % Normal 37-47 [facility] Comment on above: Performed By: #### L 3410.9999, #### [facility] [address] [place], [address] Hemoglobin (Bld) [Mass/Vol] 14.4 g/dL Normal 12.0-15.0 [facility] Comment on above: Performed By: #### L 3410.9999, #### [facility] [address] [place], [address] IG% 0.400 Normal 0.0-0.9 [facility] Comment on above: Result Comment: IG% - Immature Granulocytes (promyelocytes, myelocytes and metamyelocytes) > 1% indicates that a LEFT SHIFT is Present. Performed By: #### L 3410.9999, #### [facility] [address] [place], [address] Lymphocytes/100 WBC (Bld) 22.4 % Normal 19-41 [facility] Comment on above: Performed By: #### L 3410.9999, #### [facility] [address] [place], [address] MCH (RBC) [Entitic mass] 29.9 pg Normal 27.0-32.0 [facility] Comment on above: Performed By: #### L 3410.9999, #### [facility] [address] [place], [address] MCHC (RBC) [Mass/Vol] 33.0 g/dL Normal 32-36 [facility] Comment on above: Performed By: #### L 3410.9999, #### [facility] [address] [place], [address] MCV (RBC) [Entitic vol] 90.7 fL Normal 81-99 [facility] Comment on above: Performed By: #### L 3410.9999, #### [facility] [address] [place], [address] Monocytes/100 WBC (Bld) 7.1 % Normal 0-10 [facility] Comment on above: Performed By: #### L 3410.9999, #### [facility] [address] [place], [address] Neutrophils/100 WBC (Bld) 66.8 % Normal 47-70 [facility] Comment on above: Performed By: #### L 3410.9999, #### [facility] [address] [place], [address] Nucleated RBC (Bld) [#/Vol] 0 10*3/uL Normal 0-5 [facility] Comment on above: Performed By: #### L 3410.9999, #### [facility] [address] [place], [address] Platelet mean volume (Bld) [Entitic vol] 9.5 fL Normal 6.2-12.0 [facility] Comment on above: Performed By: #### L 3410.9999, #### [facility] [address] [place], [address] Platelets (Bld) [#/Vol] 300 10*3/uL Normal 150-450 [facility] Comment on above: Performed By: #### L 3410.9999, #### [facility] [address] [place], [address] RBC (Bld) [#/Vol] 4.82 10*6/uL Normal 4.2-5.4 [facility] Comment on above: Performed By: #### L 3410.9999, #### [facility] [address] [place], [address] RDW SD 42.2 fl Normal 35.1-43.9 [facility] Comment on above: Performed By: #### L 3410.9999, #### [facility] [address] [place], [address] WBC (Bld) [#/Vol] 11.1 10*3/uL High 4.4-11.0 [facility] Comment on above: Performed By: #### L 3410.9999, #### [facility] [address] [place], [address] Carbon dioxide, total [Moles /volume] in Central venous bloodOrdered By: Constantine Ludwig on 06-03-2024 CO2 [Moles/Vol] 27.3 mmol/L 21.0-32.0 [facility] Chloride assayOrdered By: Palomo Ludwig on 06-03-2024 Chloride [Moles/Vol] 103 mmol/L 98-108 [facility] Comprehensive Metabolic Prof ilon 06-03-2024 Albumin [Mass/Vol] 4.2 g/dL Normal 3.4-4.8 [facility] Comment on above: Performed By: #### L 3410.9999, #### [facility] [address] [place], [address] Albumin/Globulin [Mass ratio] 1.5 {ratio} Normal 0.9-2.4 [facility] Comment on above: Performed By: #### L 3410.9999, #### [facility] [address] [place], [address] ALK PHOS 85 U/L Normal 35-104 [facility] Comment on above: Performed By: #### L 3410.9999, #### [facility] [address] [place], [address] ALT [Catalytic activity/Vol] 12 U/L Normal <=34 [facility] Comment on above: Performed By: #### L 3410.9999, #### [facility] [address] [place], [address] AST [Catalytic activity/Vol] 15 U/L Normal <=31 [facility] Comment on above: Performed By: #### L 3410.9999, #### [facility] [address] [place], [address] Bilirubin [Mass/Vol] 0.21 mg/dL Normal 0.00-1.30 [facility] Comment on above: Performed By: #### L 3410.9999, #### [facility] [address] [place], [address] BUN/CRE 21.1 RATIO High 10-20 [facility] Comment on above: Performed By: #### L 3410.9999, #### [facility] [address] [place], [address] Calcium [Mass/Vol] 10.5 mg/dL Normal 7.6-11.0 [facility] Comment on above: Performed By: #### L 3410.9999, #### [facility] [address] [place], [address] Chloride [Moles/Vol] 103 mmol/L Normal 98-108 [facility] Comment on above: Performed By: #### L 3410.9999, #### [facility] [address] [place], [address] CO2 [Moles/Vol] 27.3 mmol/L Normal 21.0-32.0 [facility] Comment on above: Performed By: #### L 3410.9999, #### [facility] [address] [place], [address] Creatinine [Mass/Vol] 0.88 mg/dL Normal 0.70-1.20 [facility] Comment on above: Performed By: #### L 3410.9999, #### [facility] [address] [place], [address] GAP 9 Normal 5-15 [facility] Comment on above: Performed By: #### L 3410.9999, #### [facility] [address] [place], [address] GFR/1.73 sq M.predicted among non-blacks MDRD (S/P/Bld) [Vol rate/Area] 66 mL/min/{1.73_m2} Normal >60 [facility] Comment on above: Result Comment: mL/m in/1.73m2 CKD-EPI Creatinine Equation (2020) Performed By: #### L 3410.9999, #### [facility] [address] [place], [address] Globulin (S) [Mass/Vol] 2.7 g/dL Normal 2.2-4.2 [facility] Comment on above: Performed By: #### L 3410.9999, #### [facility] [address] [place], [address] Glucose [Mass/Vol] 98 mg/dL Normal 70-99 [facility] Comment on above: Performed By: #### L 3410.9999, M100.2200 #### [facility] [address] [place], [address] Potassium [Moles/Vol] 4.5 mmol/L Normal 3.3-5.1 [facility] Comment on above: Performed By: #### L 3410.9999, M100.2200 #### [facility] [address] [place], [address] Sodium [Moles/Vol] 139 mmol/L Normal 133-145 [facility] Comment on above: Performed By: #### L 3410.9999, M100.2200 #### [facility] [address] [place], [address] T PROT 6.9 g/dL Normal 5.9-8.4 [facility] Comment on above: Performed By: #### L 3410.9999, M100.2200 #### [facility] [address] [place], [address] Urea nitrogen [Mass/Vol] 19 mg/dL Normal 4-19 [facility] Comment on above: Performed By: #### L 3410.9999, M100.2200 #### [facility] [address] [place], [address] Eosinophil percentageOrdered By: Constantine Ludwig on 06-03-2024 Eosinophils/100 WBC (Bld) 2.8 % 0-5 [facility] Erythrocyte distribution wid th ratioOrdered By: Constantine Ludwig on 06-03-2024 Erythrocyte distribution width (RBC) [Ratio] 12.8 % 11.6-14.6 [facility] Erythrocyte distribution wid th standard deviationOrdered By: Constantine Ludwig on 06-03-2024 Erythrocyte distribution width (RBC) [Entitic vol] 42.2 fL 35.1-43.9 [facility] GFR/1.73 sq M.predicted marvel g non-blacks MDRD (S/P/Bld) [Vol rate/Area]Ordered By: Constantine Ludwig on 06-03-2024 Estimated GFR (MDRD) Non-Af Amer 66 >60 [facility] Comment on above: mL/min/1.73m2 CKD-EP I Creatinine Equation (2020) Hematocrit Auto (Bld) [Volum e fraction]Ordered By: Constantine Ludwig on 06-03-2024 Hematocrit (Bld) [Volume fraction] 43.7 % 37-47 [facility] Hemoglobin measurementOrdere d By: Constantine Ludwig on 06-03-2024 Hemoglobin (Bld) [Mass/Vol] 14.4 g/dL 12.0-15.0 [facility] Immature granulocytes/100 WB C Auto (Bld)Ordered By: Constantine Ludwig 06-03-2024 Immature granulocytes/100 WBC (Bld) 0.400 % 0.0-0.9 [facility] Comment on above: IG% - Immature Granu locytes (promyelocytes, myelocytes and metamyelocytes) > 1% indicates that a LEFT SHIFT is Present. Laboratory - Chemistry and C hemistry - challengeOrdered By: Constantine Ludwig on 06-03-2024 AST [Catalytic activity/Vol] 15 U/L <32 [facility] Lymphocytes Auto (Unsp spec) [#/Vol]Ordered By: Constantine Ludwig 06-03-2024 Lymphocytes (Bld) [#/Vol] 2.50 10*3/uL 0.83-4.51 [facility] Lymphocytes/100 WBC Auto (Un sp spec)Ordered By: Constantine Ludwig 06-03-2024 Lymphocytes/100 WBC (Bld) 22.4 % 19-41 [facility] MCV (mean corpuscular volume ) determinationOrdered By: Constantine Ludwig 06-03-2024 MCV (RBC) [Entitic vol] 90.7 fL 81-99 [facility] Mean corpuscular hemoglobin (MCH) determinationOrdered By: Constantine Ludwig 06-03-2024 MCH (RBC) [Entitic mass] 29.9 pg 27.0-32.0 [facility] Mean corpuscular hemoglobin concentration (MCHC) determinationOrdered By: Constantine Ludwig 06-03-2024 MCHC (RBC) [Mass/Vol] 33.0 g/dL 32-36 [facility] Mean platelet volume determi nationOrdered By: Constantine Ludwig on 06-03-2024 Platelet mean volume (Bld) [Entitic vol] 9.5 fL 6.2-12.0 [facility] Monocyte percentageOrdered B y: Constantine Ludwig on 06-03-2024 Monocytes/100 WBC (Bld) 7.1 % 0-10 [facility] Neutrophil percentageOrdered By: Constantine Ludwig on 06-03-2024 Neutrophils/100 WBC (Bld) 66.8 % 47-70 [facility] Nucleated red blood cell per centageOrdered By: Constantine Ludwig on 06-03-2024 Nucleated RBC/100 WBC (Bld) [Ratio] 0 % 0-5 [facility] Platelet countOrdered By: Palomo Ludwig on 06-03-2024 Platelets (Bld) [#/Vol] 300 10*3/uL 150-450 [facility] Potassium (Unsp spec) [Mass/ Vol]Ordered By: Constantine Ludwig on 06-03-2024 Potassium [Moles/Vol] 4.5 mmol/L 3.3-5.1 [facility] RBC Auto (Bld) [#/Vol]Ordere d By: Constantine Ludwig on 06-03-2024 RBC (Bld) [#/Vol] 4.82 10*6/uL 4.2-5.4 [facility] Serum creatinine measurement (mass/volume)Ordered By: Constantine Ludwig on 06-03-2024 Creatinine [Mass/Vol] 0.88 mg/dL 0.70-1.20 [facility] Serum globulin measurementOr dered By: Constantine Ludwig on 06-03-2024 Globulin (S) [Mass/Vol] 2.7 g/dL 2.2-4.2 [facility] Serum glucose measurement (m ass/volume)Ordered By: Constantine Ludwig 06-03-2024 Glucose [Mass/Vol] 98 mg/dL 70-99 [facility] Serum or plasma alanine pak otransferase (ALT) measurementOrdered By: Constantine Ludwig on 06-03-2024 ALT [Catalytic activity/Vol] 12 U/L <35 [facility] Serum or plasma albumin ajay urement (mass/volume)Ordered By: Constantine Ludwig on 06-03-2024 Albumin [Mass/Vol] 4.2 g/dL 3.4-4.8 [facility] Serum or plasma albumin/glob ulin mass ratioOrdered By: Constantine Ludwig on 06-03-2024 Albumin/Globulin [Mass ratio] 1.5 {ratio} 0.9-2.4 [facility] Serum or plasma alkaline rose mary sphatase measurementOrdered By: Constantine Ludwig on 06-03-2024 ALP [Catalytic activity/Vol] 85 U/L 35-104 [facility] Serum or plasma calcium ajay urement (mass/volume)Ordered By: Constantine Ludwig on 06-03-2024 Calcium [Mass/Vol] 10.5 mg/dL 7.6-11.0 [facility] Serum or plasma urea nitroge n measurement (mass/volume)Ordered By: Constantine Ludwig on 06-03-2024 Urea nitrogen [Mass/Vol] 19 mg/dL 4-19 [facility] Sodium levelOrdered By: Constantine Ludwig 06-03-2024 Sodium [Moles/Vol] 139 mmol/L 133-145 [facility] Total proteinOrdered By: Constantine Ludwig on 06-03-2024 Protein [Mass/Vol] 6.9 g/dL 5.9-8.4 [facility] White blood cell (WBC) count Ordered By: Constantine Ludwig on 06-03-2024 WBC (Bld) [#/Vol] 11.1 10*3/uL High 4.4-11.0 [facility] L3410.9998on 05-24-2024 [facility] Misc. COMMENT Normal . [facility] Comment on above: Order Comment: [id number] FROZEN PLASMA EDTA TUBE Result Comment: Test Ordered: 431608 Beta Amyloid 42/40 Ratio Test(s) 017560-Pbsr-egkiswb 42/40 Ratio; 114090- Beta-amyloid 42; 057561-Okre-izadzvr 40 was developed and its performance characteristics determined by [facility]. It has not been cleared or approved by the Food and Drug Administration. Beta-amyloid 42/40 Ratio 0.098 [L ] BN Reference Range: >0.102 Beta-amyloid 42 22.57 pg/mL BN Reference Range: . Beta-amyloid 40 229.96 pg/mL BN Reference Range: . Plasma beta-amyloid 1-42/1-40 ratios less than or equal to 0.102 suggest a higher probability of a patient being clinically diagnosed with Alzheimer's Disease (AD), while values above 0.102 suggest a lower probability of AD diagnosis. Precise plasma testing of Beta Amyloid 42 and Beta Amyloid 40 has demonstrated comparable effectiveness to traditional cerebrospinal fluid testing and amyloid positron emission tomography (PET) scans. When assessing the risk of AD pathology as the underlying cause for mild cognitive impairment (MCI) or dementia, it is important to consider various factors such as medical and family history, nutritional deficiency biomarkers, neuroimaging, and physical, neurological, and neuropsychological examinations. Methodology: SysmCrowdFanatic Chemiluminescence Enzyme Immunoassay (CLEIA). Values obtained with different methods cannot be used interchangeably. Performed at: [address] [id number] Rink Rat: Fay Duggan MD, Phone: [phone] Performed at: [address] [id number] Rink Rat: Simón Trimble PhD, Phone: [phone] Performed By: #### L 3410.9998 #### [facility] [address] [place], [address] L/S Spine Min 4 Viewson 05-10 L/S Spine Min 4 Views [facility] [address] [place] [address] L/S Spine Min 4 Views MR#: [id number] Acct: [id number] Name: HANNAH KERNS Rep #: [id number] : 1940 F 83 From: Kendall Pizano PCP: Dr. Constantine Ludwig MD Status: REG CLI Study: L/S Spine Min 4 Views Date of Exam: 05/20/24 Exam# [id number] Ordering Dr: Constantine Ludwig MD PROCEDURE: Lumbar spine radiographs REASON FOR EXAM: PAIN TECHNIQUE: 5 view(s) of the thoracic and lumbar spine. COMPARISON: None. FINDINGS: See impression RAD/L/S Spine Min 4 Views IMPRESSION: Vertebral body heights are within normal limits. Grade 1 anterolisthesis of L3-4 and L4-5. Mild lower thoracic dextroscoliosis. Moderate/advanced lower lumbar facet arthropathy from L3 through S1. Mild degenerative changes of the sacroiliac joints. Calcified abdominal aorta. Reading Location: [facility] CC: Dr. Constantine Ludwig MD Rough And Truing Machine Operator: Signed Normal [place] Bone density reportOrdered B y: Enrique Paredes on 05-14-2024 Study report Skeletal system DXA [facility] [address] [place] [address] Dexa Bone Density Study MR#: [id number] Acct: [id number] Name: HANNAH KERNS Rep #: [id number] : 1940 F 83 From: Armando Paredes MD PCP: Dr. Constantine Ludwig MD Status: [facility] C Study:Dexa Bone Density Study Date of Exam: 05/14/24 Exam# [id number] Ordering Dr: Constantine Ludwig MD PROCEDURE: DEXA BONE DENSITY STUDY REASON FOR EXAM: F, age 83 y/o . Postmenopausal. TECHNIQUE: DEXA scan of the lumbar spine and left hip. COMPARISON: None. FINDINGS: Lumbar Spine (L1-L4): g/cm2 (1.102)/T-score (0.4)/Z-score (3.2) findings are suggestive of normal with a low fracture risk. Left Femur Total: g/cm2 (0.862)/T-score (-0.7)/Z-score (1.6) Left Femoral Neck: g/cm2 (0.68)/T-score (-1.5)/Z-score (0.9) BD/Dexa Bone Density Study IMPRESSION: The patient is considered osteopenic as outlined below according to World [place] Organization (WHO) criteria with a low fracture risk. Reading Location: [facility] CC: Dr. Constantine Ludwig MD ~ Rough And Truing Machine Operator: Signed [facility] Dexa Bone Density Studyon Dexa Bone Density Study [facility] [address] [place] [address] Dexa Bone Density Study MR#: [id number] Acct: [id number] Name: HANNAH KERNS Rep #: [id number] : 1940 F 83 From: Enrique huff MD PCP: Dr. Constantine Ludwig MD Status: REG CLI Study: Dexa Bone Density Study Date of Exam: 05/14/24 Exam# [id number] Ordering Dr: Constantine Ludwig MD PROCEDURE: DEXA BONE DENSITY STUDY REASON FOR EXAM: F, age 83 y/o . Postmenopausal. TECHNIQUE: DEXA scan of the lumbar spine and left hip. COMPARISON: None. FINDINGS: Lumbar Spine (L1-L4): g/cm2 (1.102)/T-score (0.4)/Z-score (3.2) findings are suggestive of normal with a low fracture risk. Left Femur Total: g/cm2 (0.862)/T-score (-0.7)/Z-score (1.6) Left Femoral Neck: g/cm2 (0.68)/T-score (-1.5)/Z-score (0.9) BD/Dexa Bone Density Study IMPRESSION: The patient is considered osteopenic as outlined below according to World [place] Organization (WHO) criteria with a low fracture risk. Reading Location: [id number] CC: Dr. Constantine Ludwig MD Rough And Truing Machine Operator: Signed Normal [place] Brain without Contraston Brain without Contrast [facility] [address] [place] [address] Brain without Contrast MR#: [id number] Acct: [id number] Name: HANNAH KERNS Rep #: [id number] : 1940 F 83 From: Rick Mcgraw DO PCP: Dr. Constantine Ludwig MD Status: REG CLI Study: Brain without Contrast Date of Exam: 04/21/24 Exam# [id number] Ordering Dr: Constantine Ludwig MD PROCEDURE: BRAIN WITHOUT CONTRAST REASON FOR EXAM: Memory issues. TECHNIQUE: Multiplanar, multisequence MRI of the brain without intravenous gadolinium-based contrast. COMPARISON: None. FINDINGS: There is prominence of the ventricles and sulci indicative of atrophy. There is hyperintense T2/FLAIR signal in the periventricular and subcortical white matter likely related to chronic small vessel ischemic disease. No midline shift, mass effect, or extra-axial fluid collections are identified. No diffusion restriction is identified on diffusion-weighted imaging to suggest acute/subacute ischemic changes. No acute territorial infarction or acute intracranial hemorrhage is present. Optic chiasm and cerebellar tonsils are within normal range. There is flattening of the pituitary gland related to partial empty sella. Bilateral orbits are intact. Major vascular flow voids are present. MRI/Brain without Contrast IMPRESSION: 1. No acute intracranial process. 2. Atrophy. 3. Chronic small vessel ischemic disease. 4. Partial empty sella. Reading Location: [facility] CC: Dr. Constantine Ludwig MD Rough And Truing Machine Operator: Signed Normal [place] L3410.9999on 04-04-2024 [facility] COMMENT Normal . [facility] Comment on above: Order Comment: [id number] BETA AMYLOID Result Comment: Test Ordered: [id number] Beta Amyloid 42/40 Ratio Test(s) 424009-Slfq-qrrtque 42/40 Ratio; 119574- Beta-amyloid 42; 982797-Gdud-qfhaeva 40 was developed and its performance characteristics determined by [employer]. It has not been cleared or approved by the Food and Drug Administration. Beta-amyloid 42/40 Ratio 0.103 BN Reference Range: >0.102 Beta-amyloid 42 22.83 pg/mL BN Reference Range: . Beta-amyloid 40 221.31 pg/mL BN Reference Range: . Plasma beta-amyloid 1-42/1-40 ratios less than or equal to 0.102 suggest a higher probability of a patient being clinically diagnosed with Alzheimer's Disease (AD), while values above 0.102 suggest a lower probability of AD diagnosis. Precise plasma testing of Beta Amyloid 42 and Beta Amyloid 40 has demonstrated comparable effectiveness to traditional cerebrospinal fluid testing and amyloid positron emission tomography (PET) scans. When assessing the risk of AD pathology as the underlying cause for mild cognitive impairment (MCI) or dementia, it is important to consider various factors such as medical and family history, nutritional deficiency biomarkers, neuroimaging, and physical, neurological, and neuropsychological examinations. Methodology: SySmart Pipe Chemiluminescence Enzyme Immunoassay (CLEIA). Values obtained with different methods cannot be used interchangeably. Performed at: [address] [id number] Rink Rat: Fay Duggan MD, Phone: [phone] Performed at: [address] [id number] Rink Rat: Simón Trimble PhD, Phone: [phone] Performed By: #### L 3410.9999, M100.2200 #### [facility] [address] [place] [address]. [place], [place], [address] [facility]. COMMENT Normal . [facility] Comment on above: Order Comment: [id number]-TAU Result Comment: Test Ordered: [id number] p-ypt710 Test(s) 994895-m-nqd222 was developed and its performance characteristics determined by [facility]. It has not been cleared or approved by the Food and Drug Administration. p-pre805 0.21 [H ] pg/mL L9 Reference Range: 0.00-0.18 Clinical cutoff value was established using samples from a patient cohort characterized with amyloid PET data. A p-itx194 value of >0.18 is a reported surrogate marker for beta amyloid pathology, and can be used to facilitate biological identification of Alzheimer's disease (1). p-jef551 has also been used in clinical trials to monitor patients on anti-amyloid therapy (2,3). Test performed by Angel[employer] chemiluminescent enzyme immunoassay (CLEIA). Values obtained with different methods cannot be used interchangeably. The validated limit of quantification is 0.06 pg/mL. Assay detection limit is 0.03 pg/mL. Footnotes Comment L9 Reference Range: . 1. Mark Pretty et al. Diagnostic Accuracy of a Plasma Phosphorylated Tau 217 Immunoassay for Alzheimer Disease Pathology. CANDELARIO neurology (2023). 2. Mark Pretty, et al. Differential roles of A42/40, p-pac314 and p-fqy272 for Alzheimer's trial selection and disease monitoring. Nature medicine 28.12 (2021): 3126-1845. 3. Julianna KAUFMAN, Rebeca M, Shira SC, et al. Association of Donanemab Treatment With Exploratory Plasma Biomarkers in Early Symptomatic Alzheimer Disease: A Secondary Analysis of the TRAILBLAZER-ALZ Randomized Clinical Trial. CANDELARIO Neurol. 2021;79(12):7305-0636. Performed at: [facility] [address] [place] [id number] Rink Rat: Paz Reyes MD, Phone: [phone] Performed at: [facility] [id number] Rink Rat: Simón Trimble PhD, Phone: [phone] Performed By: #### L 3410.9999, M1 #### [facility] [address] [facility] [place], [address] Urine Cultureon 04-02-2024 [facility] Presumptive E. coli Captiva Count >100,000 Presumptive E. coli: REACTION Ampicillin Islt LISA >=32 Ampicillin+Sulbac Islt LISA 16 I Cefepime Islt LISA <=0.12 S cefTRIAXone Islt LISA <=0.25 S Ciprofloxacin Islt LISA 0.5 I B-Lactamase Extended Susc Islt NEG Gentamicin Islt LISA <=1 S levoFLOXacin Islt LISA 0.5 S Meropenem Islt LISA <=0.25 S Nitrofurantoin Islt LISA <=16 S Pip+Tazo Islt LISA <=4 S TMP SMX Islt LISA <=20 S Normal [facility] Comment on above: Performed By: #### L 3410.9999, M100.0 #### [facility] [address] [facility] [place], [address] No Panel InformationOrdered By: Constantine Ludwig on 03-31-2024 Miscellaneous Test COMMENT . [facility] Comment on above: Test Ordered: [id number] p-pud115Tilt(s) 357009-z-tmg056qvh developed and its performance characteristicsdetermined by [employer]. It has not been cleared or approvedby the Food and Drug Administration.p-dfm334 0.21 [H ] pg/mL L9 Reference Range: 0.00-0.18 Clinical cutoff value was established using samples from a patientcohort characterized with amyloid PET data. A p-zwt346 value of >0.18is a reported surrogate marker for beta amyloid pathology, and can beused to facilitate biological identification of Alzheimer's disease(1). p-qst366 has also been used in clinical trials to monitorpatients on anti-amyloid therapy (2,3). Test performed by Angelantoni chemiluminescent enzymeimmunoassay (CLEIA). Values obtained with different methods cannot beused interchangeably. The validated limit of quantification is 0.06pg/mL. Assay detection limit is 0.03 pg/mL.Footnotes Comment L9 Reference Range: .1. Mark Pretty, et al. Diagnostic Accuracy of aPlasma Phosphorylated Tau 217 Immunoassay for AlzheimerDisease Pathology. CANDELARIO neurology (2023).2. Mark Pretty., et al. Differential roles ofA42/40, p-qjg263 and p-xwu069 for Alzheimer's trialselection and disease monitoring. Nature medicine 28.12(2021): 5243-7140. 3. Julianna MJ, Rebeca M, Shira SC, etal. Association of Donanemab Treatment With ExploratoryPlasma Biomarkers in Early Symptomatic Alzheimer Disease: ASecondary Analysis of the TRAILBLAZER-ALZ RandomizedClinical Trial. CANDELARIO Neurol. 2021;79(12):4283-0535.Performed at: - [employer] [place] [address], [place] [id number] Director: Paz Reyes MD, Phone: [phone] at: - [facility] [id number] Director: Simón Trimble PhD, Phone: [phone] Urine cultureOrdered By: Constantine Ludwig on 03-31-2024 Bacteria identified Cx Nom (U) Presumptive E. coli Abnormal [facility] 11-JN-Vzmgrxp DOrdered By: Regine Ludwig on 03-19-2024 Vitamin D 25-Hydroxy 73.8 ng/mL [facility] Comment on above: Vitamin D 25(OH) Sta tus Range Deficiency <20 ng/mL (50nmol/L) Insufficiency 20 - 30 ng/mL (50 - 75 nmol/L) Sufficiency 30 - 100 ng/mL (75 - 250 nmol/L) Toxicity >100 ng/mL (>250 nmol/L) Absolute neutrophil countOrd ered By: Constantine Ludwig on 03-19-2024 Neutrophils (Bld) [#/Vol] 5.5 10*3/uL 2.0-7.7 [facility] Albumin to globulin ratioOrd ered By: Constantine Ludwig on 03-19-2024 Albumin/Globulin [Mass ratio] 1.1 {ratio} 0.9-2.4 [facility] Basophil percentageOrdered B y: Constantine Ludwig on 03-19-2024 Basophils/100 WBC (Bld) 0.6 % 0-1 [facility] Bilirubin, totalOrdered By: Constantine Ludwig on 03-19-2024 Bilirubin [Mass/Vol] 0.20 mg/dL 0.20-1.00 [facility] Comment on above: For patients on eltr ombopag therapy, use of Dimension Williamson TBIL is not recommended. Blood urea nitrogen (BUN)/cr eatinine ratioOrdered By: Constantine Ludwig on 03-19-2024 Urea nitrogen/Creatinine [Mass ratio] 16.0 mg/mg 10-20 [facility] CBC W/Diff, Automatedon Absolute Lymph 2.50 X10 3/uL Normal 0.83-4.51 [facility] Comment on above: Performed By: #### L 3410.9999, M1.2199 #### [facility] [address] [place], [address] Absolute Neut 5.5 X10 3/uL Normal 2.0-7.7 [facility] Comment on above: Performed By: #### L 3410.9999, M1.2200 #### [facility] [address] [place], [address] Basophils/100 WBC (Bld) 0.6 % Normal 0-1 [facility] Comment on above: Performed By: #### L 3410.9999, #### [facility] [address] [place], [address] Eosinophils/100 WBC (Bld) 3.7 % Normal 0-5 [facility] Comment on above: Performed By: #### L 3410.9999, #### [facility] [address] [place], [address] Erythrocyte distribution width (RBC) [Ratio] 13.0 % Normal 11.6-14.6 [facility] Comment on above: Performed By: #### L 3410.9999, #### [facility] [address] [place], [address] Hematocrit (Bld) [Volume fraction] 41.2 % Normal 37-47 [facility] Comment on above: Performed By: #### L 3410.9999, #### [facility] [address] [place], [address] Hemoglobin (Bld) [Mass/Vol] 13.8 g/dL Normal 12.0-15.0 [facility] Comment on above: Performed By: #### L 3410.9999, #### [facility] [address] [place], [address] IG% 0.500 Normal 0.0-0.9 [facility] Comment on above: Result Comment: IG% - Immature Granulocytes (promyelocytes, myelocytes and metamyelocytes) > 1% indicates that a LEFT SHIFT is Present. Performed By: #### L 3410.9999, #### [facility] [address] [place], [address] Lymphocytes/100 WBC (Bld) 27.0 % Normal 19-41 [facility] Comment on above: Performed By: #### L 3410.9999, #### [facility] [address] [place], [address] MCH (RBC) [Entitic mass] 29.2 pg Normal 27.0-32.0 [facility] Comment on above: Performed By: #### L 3410.9999, #### [facility] [address] [place], [address] MCHC (RBC) [Mass/Vol] 33.5 g/dL Normal 32-36 [facility] Comment on above: Performed By: #### L 3410.9999, #### [facility] [address] [place], [address] MCV (RBC) [Entitic vol] 87.3 fL Normal 81-99 [facility] Comment on above: Performed By: #### L 3410.9999, #### [facility] [address] [place], [address] Monocytes/100 WBC (Bld) 9.4 % Normal 0-10 [facility] Comment on above: Performed By: #### L 3410.9999, #### [facility] [address] [place], [address] Neutrophils/100 WBC (Bld) 58.8 % Normal 47-70 [facility] Comment on above: Performed By: #### L 3410.9999, #### [facility] [address] [place], [address] Nucleated RBC (Bld) [#/Vol] 0 10*3/uL Normal 0-5 [facility] Comment on above: Performed By: #### L 3410.9999, .2199 #### [facility] [address] [place], [address] Platelet mean volume (Bld) [Entitic vol] 9.1 fL Normal 6.2-12.0 [facility] Comment on above: Performed By: #### L 3410.9999, .2199 #### [facility] [address] [place], [address] Platelets (Bld) [#/Vol] 296 10*3/uL Normal 150-450 [facility] Comment on above: Performed By: #### L 3410.9999, #### [facility] [address] [place], [address] RBC (Bld) [#/Vol] 4.72 10*6/uL Normal 4.2-5.4 [facility] Comment on above: Performed By: #### L 3410.9999, .2199 #### [facility] [address] [place], [address] RDW SD 41.4 fl Normal 35.1-43.9 [facility] Comment on above: Performed By: #### L 3410.9999, #### [facility] [address] [place], [address] WBC (Bld) [#/Vol] 9.3 10*3/uL Normal 4.4-11.0 [facility] Comment on above: Performed By: #### L 3410.9999, M1 #### [facility] [address] [place], [address] Carbon dioxide measurementOr dered By: Constantine Ludwig on 03-19-2024 CO2 [Moles/Vol] 29.0 mmol/L 21.0-32.0 [facility] Chloride measurementOrdered By: Constantine Ludwig on 03-19-2024 Chloride [Moles/Vol] 103 mmol/L 98-107 [facility] Comprehensive Metabolic Prof ilon 03-19-2024 Albumin [Mass/Vol] 3.8 g/dL Normal 3.2-5.0 [facility] Comment on above: Performed By: #### L 3410.9999, #### [facility] [address] [place], [address] Albumin/Globulin [Mass ratio] 1.1 {ratio} Normal 0.9-2.4 [facility] Comment on above: Performed By: #### L 3410.9999, #### [facility] [address] [place], [address] ALK P 98 U/L Normal 45-117 [facility] Comment on above: Performed By: #### L 3410.9999, #### [facility] [address] [place], [address] ALT [Catalytic activity/Vol] 17 U/L Normal 13-56 [facility] Comment on above: Performed By: #### L 3410.9999, #### [facility] [address] [place], [address] AST [Catalytic activity/Vol] 13 U/L Low 15-37 [facility] Comment on above: Performed By: #### L 3410.9999, #### [facility] [address] [place], [address] Bilirubin [Mass/Vol] 0.20 mg/dL Normal 0.20-1.00 [facility] Comment on above: Result Comment: For patients on eltrombopag therapy, use of Dimension Williamson TBIL is not recommended. Performed By: #### L 3410.9999, #### [facility] [address] [place], [address] BUN/CRE 16.0 RATIO Normal 10-20 [facility] Comment on above: Performed By: #### L 3410.9999, .2199 #### [facility] [address] [place], [address] CA,Total 9.8 mg/dL Normal 8.5-10.1 [facility] Comment on above: Performed By: #### L 3410.9999, .2199 #### [facility] [address] [place], [address] Chloride [Moles/Vol] 103 mmol/L Normal 98-107 [facility] Comment on above: Performed By: #### L 3410.9999, #### [facility] [address] [place], [address] CO2 [Moles/Vol] 29.0 mmol/L Normal 21.0-32.0 [facility] Comment on above: Performed By: #### L 3410.9999, #### [facility] [address] [place], [address] Creatinine [Mass/Vol] 0.87 mg/dL Normal 0.55-1.02 [facility] Comment on above: Result Comment: The validity of the calculated GFR GFRAA in patients over 70 years has not been determined. Clinical correlation is essential. Performed By: #### L 3410.9999, #### [facility] [address] [place], [address] EST GFR - AA 80 mL/min Normal >60 [facility] Comment on above: Result Comment: Afri can Togolese GFR Calc Performed By: #### L 3410.9999, #### [facility] [address] [place], [address] GAP 5 Normal 5-15 [facility] Comment on above: Performed By: #### L 3410.9999, #### [facility] [address] [place], [address] GFR/1.73 sq M.predicted among non-blacks MDRD (S/P/Bld) [Vol rate/Area] 66 mL/min/{1.73_m2} Normal >60 [facility] Comment on above: Result Comment: Non- GFR Calc Performed By: #### L 3410.9999, #### [facility] [address] [place], [address] Globulin (S) [Mass/Vol] 3.6 g/dL Normal 2.2-4.2 [facility] Comment on above: Performed By: #### L 3410.9999, #### [facility] [address] [place], [address] Glucose [Mass/Vol] 97 mg/dL Normal 74-106 [facility] Comment on above: Performed By: #### L 3410.9999, #### [facility] [address] [place], [address] Potassium [Moles/Vol] 4.0 mmol/L Normal 3.5-5.1 [facility] Comment on above: Performed By: #### L 3410.9999, #### [facility] [address] [place], [address] Sodium [Moles/Vol] 137 mmol/L Normal 136-145 [facility] Comment on above: Performed By: #### L 3410.9999, #### [facility] [address] [place], [address] T PROT 7.4 g/dL Normal 6.4-8.2 [facility] Comment on above: Performed By: #### L 3410.9999, M100.2200 #### [facility] [address] [place], [address] Urea nitrogen [Mass/Vol] 14 mg/dL Normal 7-18 [facility] Comment on above: Performed By: #### L 3410.9999, M100.2200 #### [facility] [address] [place], [address] Eosinophil percentageOrdered By: Constantine Ludwig on 03-19-2024 Eosinophils/100 WBC (Bld) 3.7 % 0-5 [facility] Erythrocyte distribution wid th ratioOrdered By: Constantine Ludwig on 03-19-2024 Erythrocyte distribution width (RBC) [Ratio] 13.0 % 11.6-14.6 [facility] Erythrocyte distribution wid th standard deviationOrdered By: Constantine Ludwig on 03-19-2024 Erythrocyte distribution width (RBC) [Entitic vol] 41.4 fL 35.1-43.9 [facility] Estimated glomerular filtrat ion rate (GFR) AmericanOrdered By: Constantine Ludwig on 03-19-2024 Estimated GFR (MDRD) Amer 80 mL/min >60 [facility] Comment on above: GFR Calc Glomerular filtration rate ( GFR) estimationOrdered By: Constantine Ludwig on 03-19-2024 Estimated GFR (MDRD) Non-Af Amer 66 mL/min >60 [facility] Comment on above: Non- GFR Calc Glucose measurementOrdered B y: Constantine Ludwig on 03-19-2024 Glucose [Mass/Vol] 97 mg/dL 74-106 [facility] Hematocrit Auto (Bld) [Volum e fraction]Ordered By: Constantine Ludwig on 03-19-2024 Hematocrit (Bld) [Volume fraction] 41.2 % 37-47 [facility] Hemoglobin measurementOrdere d By: Constantine Ludwig on 03-19-2024 Hemoglobin (Bld) [Mass/Vol] 13.8 g/dL 12.0-15.0 [facility] Hepatitis C Antibodyon 03-19 Hepatitis C AB Non-Reactive Normal Nonreactive [facility] Comment on above: Result Comment: Non Reactive: < 0.8 Equivocal: >/= 0.8 to < 1.0 Reactive: >/= 1.0 The CDC requires that a reactive/equivocal HCV antibody result be sent out for confirmation. HCV Quant by PCR testing. Performed By: #### L 3410.9999, M100.2200 #### [facility] [address], [address] Hepatitis C virus antibody a ssayOrdered By: Constantine Ludwig on 03-19-2024 Hepatitis C Antibody Non-Reactive Nonreactive [facility] Comment on above: Non Reactive: < 0.8 Equivocal: >/= 0.8 to < 1.0 Reactive: >/= 1.0The CDC requires that a reactive/equivocal HCV antibody result be sent out for confirmation. HCV Quant by PCR testing. Immature granulocytes/100 WB C Auto (Bld)Ordered By: Constantine Ludwig on 03-19-2024 Immature granulocytes/100 WBC (Bld) 0.500 % 0.0-0.9 [facility] Comment on above: IG% - Immature Granu locytes (promyelocytes, myelocytes and metamyelocytes) > 1% indicates that a LEFT SHIFT is Present. Laboratory - Chemistry and C hemistry - challengeOrdered By: Constantine Ludwig on 03-19-2024 AST [Catalytic activity/Vol] 13 U/L Low 15-37 [facility] Lymphocytes Auto (Unsp spec) [#/Vol]Ordered By: Constantine Ludwig 03-19-2024 Lymphocytes (Bld) [#/Vol] 2.50 10*3/uL 0.83-4.51 [facility] Lymphocytes/100 WBC Auto (Un sp spec)Ordered By: Constantine Ludwig on 03-19-2024 Lymphocytes/100 WBC (Bld) 27.0 % 19-41 [facility] MCV (mean corpuscular volume ) determinationOrdered By: Constantine Ludwig on 03-19-2024 MCV (RBC) [Entitic vol] 87.3 fL 81-99 [facility] Mean corpuscular hemoglobin (MCH) determinationOrdered By: Constantine Ludwig 03-19-2024 MCH (RBC) [Entitic mass] 29.2 pg 27.0-32.0 [facility] Mean corpuscular hemoglobin concentration (MCHC) determinationOrdered By: Constantine Ludwig on 03-19-2024 MCHC (RBC) [Mass/Vol] 33.5 g/dL 32-36 [facility] Mean platelet volume determi nationOrdered By: Constantine Ludwig on 03-19-2024 Platelet mean volume (Bld) [Entitic vol] 9.1 fL 6.2-12.0 [place] Monocyte percentageOrdered B y: Constantine Ludwig on 03-19-2024 Monocytes/100 WBC (Bld) 9.4 % 0-10 [facility] Neutrophil percentageOrdered By: Constantine Ludwig on 03-19-2024 Neutrophils/100 WBC (Bld) 58.8 % 47-70 [facility] Nucleated red blood cell per centageOrdered By: Constantine Ludwig on 03-19-2024 Nucleated RBC/100 WBC (Bld) [Ratio] 0 % 0-5 [facility] Platelet countOrdered By: Palomo Ludwig on 03-19-2024 Platelets (Bld) [#/Vol] 296 10*3/uL 150-450 [facility] Potassium measurementOrdered By: Constantine Ludwig 03-19-2024 Potassium [Moles/Vol] 4.0 mmol/L 3.5-5.1 [facility] RBC Auto (Bld) [#/Vol]Ordere d By: Constantine Ludwig on 03-19-2024 RBC (Bld) [#/Vol] 4.72 10*6/uL 4.2-5.4 [facility] Serum anion gap measurementO rdered By: Constantine Ludwig on 03-19-2024 Anion gap [Moles/Vol] 5 mmol/L 5-15 [facility] Serum globulin measurementOr dered By: Constantine Ludwig 03-19-2024 Globulin (S) [Mass/Vol] 3.6 g/dL 2.2-4.2 [facility] Serum or plasma alanine pak otransferase (ALT) measurementOrdered By: Constantine Ludwig 03-19-2024 ALT [Catalytic activity/Vol] 17 U/L 13-56 [facility] Serum or plasma albumin ajay urement (mass/volume)Ordered By: Constantine Ludwig on 03-19-2024 Albumin [Mass/Vol] 3.8 g/dL 3.2-5.0 [facility] Serum or plasma alkaline rose mary sphatase measurementOrdered By: Constantine Ludwig on 03-19-2024 ALP [Catalytic activity/Vol] 98 U/L 45-117 [facility] Serum or plasma calcium ajay urement (mass/volume)Ordered By: Constantine Ludwig on 03-19-2024 Calcium [Mass/Vol] 9.8 mg/dL 8.5-10.1 [facility] Serum or plasma creatinine m easurement (mass/volume)Ordered By: Constantine Ludwig on 03-19-2024 Creatinine [Mass/Vol] 0.87 mg/dL 0.55-1.02 [facility] Comment on above: The validity of the calculated GFR & GFRAA in patients over 70 years has not been determined. Clinical correlation is essential. Serum or plasma urea nitroge n measurement (mass/volume)Ordered By: Constantine Ludwig on 03-19-2024 Urea nitrogen [Mass/Vol] 14 mg/dL 7-18 [place] Sodium levelOrdered By: Constantine Ludwig on 03-19-2024 Sodium [Moles/Vol] 137 mmol/L 136-145 [facility] TSH QnOrdered By: Constantine Ludwig o n 03-19-2024 Thyroid Stimulating Hormone (TSH) 2.020 uIU/mL 0.358-3.740 [place] Thyroid Stim Hormone (TSH)on 03-19-2024 TSH 2.020 uIU/mL Normal 0.358-3.740 [facility] Comment on above: Performed By: #### L 3410.9999, M100.2200 #### [facility] [address] [place], [address] Total proteinOrdered By: Constantine Ludwig on 03-19-2024 Protein [Mass/Vol] 7.4 g/dL 6.4-8.2 [facility] Vitamin D,25 Hydroxyon 03-19 Vitamin D 25-OH 73.8 ng/mL Normal [facility] Comment on above: Result Comment: Barbie min D 25(OH) Status Range Deficiency <20 ng/mL (50nmol/L) Insufficiency 20 - 30 ng/mL (50 - 75 nmol/L) Sufficiency 30 - 100 ng/mL (75 - 250 nmol/L) Toxicity >100 ng/mL (>250 nmol/L) Performed By: #### L 3410.9999, M100.2200 #### [facility] [address] [place], [address] White blood cell (WBC) count Ordered By: Constantine Ludwig on 03-19-2024 WBC (Bld) [#/Vol] 9.3 10*3/uL 4.4-11.0 [facility] Bacteria Ur Culton 4 Bacteria identified Cx Nom (U) ORGANISM ID: 1 10,000 -<50,000 CFU/ml Mixed microbiota No further workup. Mixed microbiota can be due to???urine???contamination with skin bacteria at time of collection or presence of a long-term urinary catheter. If a new culture is needed, please consider re-education of the patient on proper midstream collection technique or straight catheterization for???urine???collection. Normal [facility] Comment on above: Performed By: #### 6 30-4 #### [facility] CLIA [id number] [address] [place] [address] OF [facility] URINALYSISon 03-07-2024 Amorphous NONE Normal [facility] Comment on above: Performed By: #### 2 35109 #### [facility],[address] [place] [address] 11940 Bacteria NONE Normal [facility] Comment on above: Performed By: #### 2 85381 #### [facility],[address] [place] [address] 30386 Bilirubin Ql (U) Negative Normal NORMAL: NEGATIVE [facility] Comment on above: Performed By: #### 2 90890 #### [facility],[address] [place] [address] 05988 Casts NONE Normal [facility] Comment on above: Performed By: #### 2 00051 #### [facility],[address] [place] [address] 34835 Clarity (U) clear Normal NORMAL: CLEAR [facility] Comment on above: Performed By: #### 2 70015 #### [facility],[address] [place] [address] 43743 Color (U) yellow Normal NORMAL: YELLOW [facility] Comment on above: Performed By: #### 2 12170 #### [facility],[address] [place] [address],[facility] [address] Crystals LM Nom (Urine sed) NONE Normal [facility] Comment on above: Performed By: #### 2 47106 #### [facility],[address] [place], [place] [id number] Epi Cells FEW Normal [facility] Comment on above: Performed By: #### 2 66832 #### [facility],[address] [place] [address] 51415 Glucose Ql (U) NORM Normal NORMAL: NORMAL [facility] Comment on above: Performed By: #### 2 43366 #### [facility],[address] [place] [address] 18476 Hemoglobin Ql (U) 25 Abnormal NORMAL: NEGATIVE [facility] Comment on above: Performed By: #### 2 21065 #### [facility],[address] [place] [address] 59037 Ketone Negative Normal NORMAL: NEGATIVE [facility] Comment on above: Performed By: #### 2 28448 #### [facility],[address] [place] [address] 63110 Leukocytes Negative Normal NORMAL: NEGATIVE [facility] Comment on above: Performed By: #### 2 53831 #### [facility],[address] [place] [address] 46728 Mucous NONE Normal [facility] Comment on above: Performed By: #### 2 37617 #### [facility],[address] [place] [address] Nitrite Ql (U) Negative Normal NORMAL: NEGATIVE [facility] Comment on above: Performed By: #### 2 09207 #### [facility],[address] [place] [address] pH (U) 6 [pH] Normal NORMAL: 5.0-8.0 [facility] Comment on above: Performed By: #### 2 83039 #### [facility],[address] [place] [address] Protein Ql (U) 15 Abnormal NORMAL: NEGATIVE [facility] Comment on above: Performed By: #### 2 45663 #### [facility],[address] [place] [address] Rbc 0-5 Normal 0-3/hpf [facility] Comment on above: Performed By: #### 2 87688 #### [facility],[address] [place] [address] Sp [place] 1.010 Normal NORMAL: 1.010-1.030 [facility] Comment on above: Performed By: #### 2 28027 #### [facility],[address] [place] [address] Specimen Type R Normal [facility] Comment on above: Performed By: #### 2 03630 #### [facility],[address] [place] [address] Urinalysis dipstick W Reflex Microscopic panel (U) SEE BELOW Normal [facility] Comment on above: Result Comment: MICR OSCOPIC Performed By: #### 2 62020 #### [facility],[address] [place] [address] Urobilinog NORM Normal NORMAL: NORMAL [facility] Comment on above: Performed By: #### 2 93853 #### [facility],[address] [place] [address] Wbc NONE Normal 0-5/hpf [facility] Comment on above: Performed By: #### 2 51336 #### [facility],[address] [place] [address] 44592 Yeast NONE Normal [facility] Comment on above: Performed By: #### 2 86771 #### [facility],[address] [place] [address] 08381 URINE CULTURE [CCL]on 2023 Bacteria identified Cx Nom (U) URCUL See Results Below See Below CULTURE, URINE MIXED MICROBIOTA 10,000 -<50,000 CFU/ml Mixed microbiota No further workup. Mixed microbiota can be due to???urine???contamination with s SOURCE: Urine (Nonspecific) [facility] [address] [place] [address] Ethan Pedersen III, M.D. [id number] Normal [facility] Comment on above: Performed By: #### 2 55219 ####[facility],[address] [place] [address] 00131 Bacteria Ur Culton Bacteria identified Cx Nom (U) CULTURE, URINE: Mixed microbiota, including predominantly: ORGANISM ID: 1 50,000-<100,000 CFU/ml Raoultella (Klebsiella) ornithinolytica ORGANISM ID: 1 (RAOULTELLA (KLEBSIELLA) ORNITHINOLYTICA) ANTIBIOTIC INTERPRETATION LSIA STATUS REFERENCE RANGE Ampicillin R >=32 F Susceptible <=8 , Intermediate >8 , Resistant >16 Cefazolin S <=4 F Susceptible 0-16 , Intermediate <0 or >16 , Resistant >16 For uncomplicated urinary tract infections, cefazolin results can be used to predict susceptibility or resistance to cephalexin. Ceftriaxone S <=1 F Susceptible <=1 , Intermediate >1 , Resistant >=4 Cefepime S <=1 F Susceptible <=2 , Susceptible-Dose Dependent >2 , Resistant >=16 Ertapenem S <=0.5 F Susceptible <=0.5 , Intermediate >.5 , Resistant >1 Meropenem S <=0.25 F Susceptible <=1 , Intermediate >1 , Resistant >2 Ampicillin/Sulbact S 4 F Susceptible <=8 , Intermediate >8 , Resistant >16 Piperacillin/Tazobac S <=4 F Susceptible <16 , Susceptible-Dose Dependent >=16 , Resistant >=32 Gentamicin S <=1 F Susceptible <=2 , Intermediate >2 , Resistant >=8 Tobramycin S <=1 F Susceptible <4 , Intermediate >=4 , Resistant >=8 Trimeth sulfameth S <=20 F Susceptible <=40 , Resistant >40 Ciprofloxacin S <=0.25 F Susceptible <0.5 , Intermediate >=.5 , Resistant >=1 Nitrofurantoin S 32 F Susceptible <=32 , Intermediate >32 , Resistant >64 Abnormal [facility] Comment on above: Performed By: #### 6 30-4 #### [facility] CLIA [id number] [address] [place] [address] STATES OF [facility] CBC (NO DIFF)on 02-26-2024 CBC panel Auto (Bld) Normal [facility] Comment on above: Result Comment: CBC( WITHOUT DIFFERENTIAL) Performed By: #### 2 20724 ####[facility],[address] [place], [place] [id number] Erythrocyte distribution width (RBC) [Ratio] 13.2 % Normal 12.0 - 15.6 [facility] Comment on above: Performed By: #### 2 02275 ####[facility],[address] [place] [address] 69101 Hematocrit (Bld) [Volume fraction] 41.0 % Normal 34.0 - 46.0 [facility] Comment on above: Performed By: #### 2 35110 ####[facility],[address] [place] [address] 24749 Hemoglobin (Bld) [Mass/Vol] 13.6 g/dL Normal 12.0 - 16.0 [facility] Comment on above: Performed By: #### 2 29003 ####[facility],[address] [place] [address] 13314 MCH (RBC) [Entitic mass] 30 pg Normal 27 - 33 [facility] Comment on above: Performed By: #### 2 55993 ####[facility],[address] [place] [address] MCHC 33 X10 3 Normal 32 - 36 [facility] Comment on above: Performed By: #### 2 47337 ####[facility],[address] [place] [address] 70084 MCV (RBC) [Entitic vol] 90 fL Normal 80 - 99 [facility] Comment on above: Performed By: #### 2 54234 ####[facility],[address] [place] [address] 73448 PLATELET 298 x10EE3/UL Normal 150 - 450 [facility] Comment on above: Performed By: #### 2 18729 ####[facility],[address] [place] [address] 29828 Platelet mean volume (Bld) [Entitic vol] 8.2 fL Normal 6.6 - 10.5 [facility] Comment on above: Performed By: #### 2 73636 ####[facility],[address] [place] [address] 64074 RBC 4.58 x 10EE6/UL Normal 4.10 - 5.30 [facility] Comment on above: Performed By: #### 2 21563 ####[facility],[address] [place] [address] 05012 WBC 8.0 x 10EE3/UL Normal 4.5 - 10.8 [facility] Comment on above: Performed By: #### 2 43279 ####[facility],[address] [place] [address] 44401 URINE CULTURE [CCL]on 2023 Bacteria identified Cx Nom (U) URCUL See Results Below See Below CULTURE, URINE Mixed microbiota, including predominantly: CULTURE, URINE RAOULTELLA (KLEBSIELLA) ORNITHINOLYTICA 50,000-<100,000 CFU/ml Raoultella (Klebsiella) ornithinolytica ORGANISM: RAOULTELLA (KLEBSIELLA) ORNITHINOLYTICA ANTIBIOTIC LISA DILUTN LISA INTERP Ampicillin >=32 Resistant Cefazolin <=4 Susceptible For uncomplicated urinary tract infections, cefazolin results can be used to pre Ceftriaxone <=1 Susceptible Cefepime <=1 Susceptible Ertapenem <=0.5 Susceptible Meropenem <=0.25 Susceptible Ampicillin/Sulbact 4 Susceptible Piperacillin/Tazobac <=4 Susceptible Gentamicin <=1 Susceptible Tobramycin <=1 Susceptible Trimeth sulfameth <=20 Susceptible Ciprofloxacin <=0.25 Susceptible Nitrofurantoin 32 Susceptible This test was developed and its performance characteristics determined by the [facility]'s [facility] [place] ([facility]). It has not been cleared or approved by the FDA. [facility] is regulated under CLIA as qualified to perform high-complexity testing. This test is used for clinical purposes. It should not be regarded as investigational or for research. SOURCE: Urine (Nonspecific) [facility] [address] [place] [address] Ethan Pedersen III, M.D. [id number] Normal [facility] Comment on above: Performed By: #### 2 90030 ####[facility],[address] [place] [address] 58581 T4-FREE (FREE THYROXINE)on 04-18-2023 Free T4 [Mass/Vol] 0.73 ng/dL Low 0.76 - 1.46 [facility] Comment on above: Result Comment: P otential of falsely elevated results when biotin concentrations are > 10 ng/mL. Performed By: #### 2 58987 #### [facility],[address] [place], [place] [address] TSHon 02-14-2024 TSH Qn 5.42 m[IU]/L High 0.35 - 3.74 [facility] Comment on above: Performed By: #### 2 05020 #### [facility],[address] [place] [address] URINE CULTURE [CCL]on 2023 Bacteria identified Cx Nom (U) URCUL See Results Below See Below CULTURE, URINE ESCHERICHIA COLI >=100,000 CFU/ml Escherichia coli CULTURE, URINE LACTOSE POSITIVE GRAM NEGATIVE BACILLI <10,000 CFU/ml Lactose positive gram negative bacilli Morphology 2 Insignificant colony count. No further workup. ORGANISM: ESCHERICHIA COLI ANTIBIOTIC LISA DILUTN LISA INTERP Ampicillin >=32 Resistant Cefazolin <=4 Susceptible For uncomplicated urinary tract infections, cefazolin results can be used to pre Ceftriaxone <=1 Susceptible Cefepime <=1 Susceptible Ertapenem <=0.5 Susceptible Meropenem <=0.25 Susceptible Ampicillin/Sulbact >=32 Resistant Piperacillin/Tazobac <=4 Susceptible Gentamicin <=1 Susceptible Tobramycin <=1 Susceptible Trimeth sulfameth <=20 Susceptible Ciprofloxacin <=0.25 Susceptible Nitrofurantoin <=16 Susceptible This test was developed and its performance characteristics determined by the [facility]'s [facility] [place] ([facility] It has not been cleared or approved by the FDA. [facility] is regulated under CLIA as qualified to perform high-complexity testing. This test is used for clinical purposes. It should not be regarded as investigational or for research. SOURCE: Urine (Nonspecific) [facility] [address] [place] [address] Ethan Pedersen III, M.D. [id number] SEND TO IC YES Normal [facility] Comment on above: Performed By: #### 2 34137 ####[facility],[address] [facility] [address] Bacteria Ur Culton 4 Bacteria identified Cx Nom (U) ORGANISM ID: 1 >=100,000 CFU/ml Escherichia coli ORGANISM ID: 2 <10,000 CFU/ml Lactose positive gram negative bacilli Morphology 2 Insignificant colony count. No further workup. ORGANISM ID: 1 (ESCHERICHIA COLI) ANTIBIOTIC INTERPRETATION LISA STATUS REFERENCE RANGE Ampicillin R >=32 F Susceptible <=8 , Intermediate >8 , Resistant >16 Cefazolin S <=4 F Susceptible 0-16 , Intermediate <0 or >16 , Resistant >16 For uncomplicated urinary tract infections, cefazolin results can be used to predict susceptibility or resistance to cephalexin. Ceftriaxone S <=1 F Susceptible <=1 , Intermediate >1 , Resistant >=4 Cefepime S <=1 F Susceptible <=2 , Susceptible-Dose Dependent >2 , Resistant >=16 Ertapenem S <=0.5 F Susceptible <=0.5 , Intermediate >.5 , Resistant >1 Meropenem S <=0.25 F Susceptible <=1 , Intermediate >1 , Resistant >2 Ampicillin/Sulbact R >=32 F Susceptible <=8 , Intermediate >8 , Resistant >16 Piperacillin/Tazobac S <=4 F Susceptible <16 , Susceptible-Dose Dependent >=16 , Resistant >=32 Gentamicin S <=1 F Susceptible <=2 , Intermediate >2 , Resistant >=8 Tobramycin S <=1 F Susceptible <4 , Intermediate >=4 , Resistant >=8 Trimeth sulfameth S <=20 F Susceptible <=40 , Resistant >40 Ciprofloxacin S <=0.25 F Susceptible <0.5 , Intermediate >=.5 , Resistant >=1 Nitrofurantoin S <=16 F Susceptible <=32 , Intermediate >32 , Resistant >64 Abnormal [facility] Comment on above: Performed By: #### 6 30-4 #### [facility] CLIA [id number] [address] [place] [address] [place] [facility] T4-FREE (FREE THYROXINE)on 0 11-26-2023 Free T4 [Mass/Vol] 0.64 ng/dL Low 0.76 - 1.46 [facility] Comment on above: Result Comment: P otential of falsely elevated results when biotin concentrations are > 10 ng/mL. Performed By: #### 2 32423 #### [facility],[address] [place] [address] TSHon 11-26-2023 TSH Qn 4.33 m[IU]/L High 0.35 - 3.74 [facility] Comment on above: Performed By: #### 2 11301 #### [facility],[address] [place] [address] BMP with eGFRon 11-06-2023 AGE 83 years Normal [facility] Comment on above: Performed By: #### 2 59858 ####[facility],[address] [place] [address] Anion gap [Moles/Vol] 12 mmol/L Normal 10 - 20 [facility] Comment on above: Performed By: #### 2 25814 ####[facility],[address] [place] [address] BMP with eGFR Normal [facility] Comment on above: Result Comment: BASI C METABOLIC PANEL Performed By: #### 2 55840 ####[facility],[address] [place] [address] 86371 Calcium [Mass/Vol] 9.0 mg/dL Normal 8.5 - 10.1 [facility] Comment on above: Performed By: #### 2 19315 ####[facility],[address] [place] [address] 55078 Chloride [Moles/Vol] 103 mmol/L Normal 98 - 107 [facility] Comment on above: Performed By: #### 2 23299 ####[facility],[address] [place] [address] 99517 CO2 [Moles/Vol] 25.1 mmol/L Normal 21.0 - 32.0 [facility] Comment on above: Performed By: #### 2 14357 ####[facility],[address] [place] [address] 03271 Creatinine [Mass/Vol] 0.91 mg/dL Normal 0.55 - 1.02 [facility] Comment on above: Performed By: #### 2 36221 ####[facility],[address] [place] [address] 24615 eGFR 59 ML/MINUTE Low 60 - 999 [facility] Comment on above: Performed By: #### 2 39567 ####[facility],[address] [place] [address] 02248 GFR/1.73 sq M.predicted among non-blacks MDRD (S/P/Bld) [Vol rate/Area] mL/min/{1.73_m2} Normal 60 - 999 [facility] Comment on above: Result Comment: ACCO RDING TO THE NATIONAL KIDNEY DISEASE EDUCATION PROGRAM(NKDE), A NORMAL eGFR IS A VALUE GREATER THAN OR EQUAL TO 60 ML/MIN/1.73 SQ METERS. CHRONIC KIDNEY DISEASE: <60mL/MIN/1.73 SQ METERS KIDNEY FAILURE: <15mL/MIN/1.73 SQ METERS THIS TEST SHOULD ONLY BE USED FOR PATIENTS 18 YEARS OF AGE AND OLDER. Performed By: #### 2 46717 ####[facility],[address] [place] [address] 66499 Glucose [Mass/Vol] 147 mg/dL High 74 - 106 [facility] Comment on above: Performed By: #### 2 90804 ####[facility],[address] [place] [address] 89776 Potassium [Moles/Vol] 4.2 mmol/L Normal 3.5 - 5.1 [facility] Comment on above: Performed By: #### 2 30770 ####[facility],[address] [place] [address] 65978 Sodium [Moles/Vol] 136 mmol/L Normal 136 - 145 [facility] Comment on above: Performed By: #### 2 97888 ####[facility],[address] [place], [place] [id number] Urea nitrogen [Mass/Vol] 11 mg/dL Normal 7 - 18 [facility] Comment on above: Performed By: #### 2 20346 ####[facility],[address] [place] [address] 23468 CBC + DIFFon 11-06-2023 Baso # 0.02 x10EE3/UL Normal 0.00 - 0.10 [facility] Comment on above: Performed By: #### 2 67625 ####[facility],[address] [place] [address] 88638 Basophils/100 WBC (Bld) 0.2 % Normal 0.0 - 2.0 [facility] Comment on above: Performed By: #### 2 04689 ####[facility],[address] [place] [address] 77083 CBC + DIFF Normal [facility] Comment on above: Result Comment: CBC- COMPLETE BLOOD COUNT Performed By: #### 2 27396 ####[facility],[address] [place] [address] 23030 EO # 0.05 x10EE3/UL Normal 0.00 - 0.50 [facility] Comment on above: Performed By: #### 2 98898 ####[facility],[address] [place] [address] 16895 Eosinophils/100 WBC (Bld) 0.5 % Normal 0.0 - 7.0 [facility] Comment on above: Performed By: #### 2 60857 ####[facility],[address] [place] [address] Erythrocyte distribution width (RBC) [Ratio] 13.3 % Normal 12.0 - 15.6 [facility] Comment on above: Performed By: #### 2 46627 ####[facility],[address] [place] [address] Hematocrit (Bld) [Volume fraction] 32.0 % Low 34.0 - 46.0 [facility] Comment on above: Performed By: #### 2 14906 ####[place] [address] Hemoglobin (Bld) [Mass/Vol] 10.5 g/dL Low 12.0 - 16.0 [facility] Comment on above: Performed By: #### 2 32512 ####[facility],[address] [place] [address] 67863 Lymph # 1.43 x10EE3/UL Normal 0.80 - 2.80 [facility] Comment on above: Performed By: #### 2 57346 ####[facility],[address] [place] [address] 66040 Lymphocytes/100 WBC (Bld) 15.2 % Low 20.0 - 45.0 [facility] Comment on above: Performed By: #### 2 56754 ####[facility],[address] [place] [address] 51740 MANUAL DIFF N/A Normal [facility] Comment on above: Performed By: #### 2 28128 ####[facility],[address] [place] [address] 82971 MCH (RBC) [Entitic mass] 30 pg Normal 27 - 33 [facility] Comment on above: Performed By: #### 2 38470 ####[facility],[address] [place] [address] 27094 MCHC 33 X10 3 Normal 32 - 36 [facility] Comment on above: Performed By: #### 2 33726 ####[facility],[address] [place] [address] 37702 MCV (RBC) [Entitic vol] 91 fL Normal 80 - 99 [facility] Comment on above: Performed By: #### 2 51034 ####[facility],[address] [place] [address] 04237 Holt # 0.90 x10EE3/UL Normal 0.20 - 1.00 [facility] Comment on above: Performed By: #### 2 71712 ####[facility],[address] [place] [address] 98979 MONOS % 9.6 % Normal 0.0 - 10.0 [facility] Comment on above: Performed By: #### 2 70346 ####[facility],[address] [place] [address] 77098 Morphology Pasquale (Bld) [Interp] N/A Normal [facility] Comment on above: Performed By: #### 2 95084 ####[facility],[address] [place] [address] 28463 Neut # 7.02 x10EE3/UL Normal 1.50 - 7.10 [facility] Comment on above: Performed By: #### 2 37277 ####[facility],[address] [place] [address] 90343 Neutrophils/100 WBC (Bld) 74.5 % Normal 46.0 - 76.0 [facility] Comment on above: Performed By: #### 2 02146 ####[facility],[address] [place] [address] 68973 PLATELET 274 x10EE3/UL Normal 150 - 450 [facility] Comment on above: Performed By: #### 2 51760 ####[facility],[address] [place] [address] 24677 Platelet mean volume (Bld) [Entitic vol] 7.9 fL Normal 6.6 - 10.5 [facility] Comment on above: Result Comment: AUTO MATED DIFFERENTIAL Performed By: #### 2 59540 ####[facility],[address] [place] [address] 33525 RBC 3.51 x 10EE6/UL Low 4.10 - 5.30 [facility] Comment on above: Performed By: #### 2 96275 ####[facility],[address] [place] [address] 23782 WBC 9.4 x 10EE3/UL Normal 4.5 - 10.8 [facility] Comment on above: Performed By: #### 2 33264 ####[facility],[address] [place] [address] 41411 HIP COMPLETE RT MIN 2 VIEWS W/PELVISon 11-05-2023 HIP COMPLETE RT MIN 2 VIEWS W/PELVIS [place] [address] Patient: HANNAH KERNS Phone#: : 1940 Age: 83 Gender: F Pt. Type: In Account: [id number] Location: [facility] Ordering: FROYLAN L[place]IS Exam Date: 11/05/2023/15:43 Family Phys: ASIA BEBE Charge Code: [id number] Physician: [place] Order #: [id number] Dose#: PROCEDURE: X-RAY HIP RT COMPLETE MIN 2 VIEWS W/PELVIS COMPARISON: [facility], , HIP COMPLETE RT, 09/03/2023, 15:37. INDICATIONS: Post right hip surgery. FINDINGS: BONES: Right hip prosthesis is present. The adjacent bony architecture is intact. Mild degenerative change of the left hip is present. Degenerative changes at the lower lumbar spine are present. SOFT TISSUES: Postsurgical soft tissue air is present. EFFUSION: None visible. OTHER: Negative. CONCLUSION: 1. Right hip prosthesis. Dictated by: Maggie Cadena MD on 11/05/2023 at 16:34 Approved by: Maggie Cadena MD on 11/05/2023 at 16:35 Normal [facility] HEMOGLOBIN A1C (POM)on 10-09 Glucose [Mass/Vol] 111.2 mg/dL High 0.0 - 0.0 [facility] Comment on above: Result Comment: BLDo HEMOGLOBIN A1C REFERENCE RANGESBLDo Suggested Diagnosis HbA1c(%) HbA1C (mmol/mol Diabetic >/=6.5 >/=48 Prediabetes 5.7 - 6.4 39 - 47 Normal <5.7 <39 Performed By: #### 2 93436 ####[place] [address] HbA1c (Bld) [Mass fraction] 5.5 % Normal 0.0 - 6.5 [facility] Comment on above: Performed By: #### 2 36791 ####[facility],[address] [place] [address] BMP with eGFRon 10-09-2023 AGE 83 years Normal [facility] Comment on above: Performed By: #### 2 03855 #### [facility],[address] [place] [address] Anion gap [Moles/Vol] 12 mmol/L Normal 10 - 20 [facility] Comment on above: Performed By: #### 2 42659 #### [facility],[address] [place], [place] [address] BMP with eGFR Normal [facility] Comment on above: Result Comment: BASI C METABOLIC PANEL Performed By: #### 2 87015 #### [address] [address] Calcium [Mass/Vol] 9.5 mg/dL Normal 8.5 - 10.1 [facility] Comment on above: Performed By: #### 2 20769 #### [facility],[address] [place] [address] 47755 Chloride [Moles/Vol] 103 mmol/L Normal 98 - 107 [facility] Comment on above: Performed By: #### 2 92245 #### [facility],[address] [place] [address] 53267 CO2 [Moles/Vol] 27.9 mmol/L Normal 21.0 - 32.0 [facility] Comment on above: Performed By: #### 2 40671 #### [facility],[address] [place], [place] [address] Creatinine [Mass/Vol] 0.91 mg/dL Normal 0.55 - 1.02 [facility] Comment on above: Performed By: #### 2 98781 #### [facility],[address] [place] [address] 16825 eGFR 59 ML/MINUTE Low 60 - 999 [facility] Comment on above: Performed By: #### 2 94590 #### [facility],[address] [place] [address] 85294 GFR/1.73 sq M.predicted among non-blacks MDRD (S/P/Bld) [Vol rate/Area] mL/min/{1.73_m2} Normal 60 - 999 [facility] Comment on above: Result Comment: ACCO RDING TO THE NATIONAL KIDNEY DISEASE EDUCATION PROGRAM(NKDE), A NORMAL eGFR IS A VALUE GREATER THAN OR EQUAL TO 60 ML/MIN/1.73 SQ METERS. CHRONIC KIDNEY DISEASE: <60mL/MIN/1.73 SQ METERS KIDNEY FAILURE: <15mL/MIN/1.73 SQ METERS THIS TEST SHOULD ONLY BE USED FOR PATIENTS 18 YEARS OF AGE AND OLDER. Performed By: #### 2 01585 #### [facility],[address] [place] [address] 92152 Glucose [Mass/Vol] 93 mg/dL Normal 74 - 106 [facility] Comment on above: Performed By: #### 2 06072 #### [facility],[address] [place] [address] 26241 Potassium [Moles/Vol] 4.2 mmol/L Normal 3.5 - 5.1 [facility] Comment on above: Performed By: #### 2 04239 #### [facility],[address] [place] [address] 45639 Sodium [Moles/Vol] 139 mmol/L Normal 136 - 145 [facility] Comment on above: Performed By: #### 2 26808 #### [facility],[address] [place] [address] Urea nitrogen [Mass/Vol] 18 mg/dL Normal 7 - 18 [facility] Comment on above: Performed By: #### 2 41754 #### [facility],[address] [place] [address] CBC + DIFFon 10-09-2023 Baso # 0.03 x10EE3/UL Normal 0.00 - 0.10 [facility] Comment on above: Performed By: #### 2 26530 #### [facility],[address] [place], [place] [address] Basophils/100 WBC (Bld) 0.5 % Normal 0.0 - 2.0 [facility] Comment on above: Performed By: #### 2 55893 #### [place] [address] CBC + DIFF Normal [facility] Comment on above: Result Comment: CBC- COMPLETE BLOOD COUNT Performed By: #### 2 78178 #### [facility],[address] [place] [address] EO # 0.20 x10EE3/UL Normal 0.00 - 0.50 [facility] Comment on above: Performed By: #### 2 63816 #### [facility],[address] [place] [address] 65373 Eosinophils/100 WBC (Bld) 2.8 % Normal 0.0 - 7.0 [facility] Comment on above: Performed By: #### 2 57527 #### [facility] [place], [place] [address] Erythrocyte distribution width (RBC) [Ratio] 13.4 % Normal 12.0 - 15.6 [facility] Comment on above: Performed By: #### 2 05740 #### [facility],[address] [place] [address] Hematocrit (Bld) [Volume fraction] 37.5 % Normal 34.0 - 46.0 [facility] Comment on above: Performed By: #### 2 53949 #### [facility],[address] [place] [address] Hemoglobin (Bld) [Mass/Vol] 13.0 g/dL Normal 12.0 - 16.0 [facility] Comment on above: Performed By: #### 2 59855 #### [facility],[address] [place] [address] Lymph # 2.14 x10EE3/UL Normal 0.80 - 2.80 [facility] Comment on above: Performed By: #### 2 70985 #### [facility],[address] [place], [place] [address] Lymphocytes/100 WBC (Bld) 30.1 % Normal 20.0 - 45.0 [facility] Comment on above: Performed By: #### 2 10913 #### [facility],[address] [place], [place] [address] MANUAL DIFF N/A Normal [facility] Comment on above: Performed By: #### 2 49796 #### [facility],[address] [place] [address] 62207 MCH (RBC) [Entitic mass] 31 pg Normal 27 - 33 [facility] Comment on above: Performed By: #### 2 02156 #### [facility],[address] [place] [address] 67345 MCHC 35 X10 3 Normal 32 - 36 [facility] Comment on above: Performed By: #### 2 77729 #### [facility],[address] [place] [address] 61451 MCV (RBC) [Entitic vol] 88 fL Normal 80 - 99 [facility] Comment on above: Performed By: #### 2 59793 #### [facility],[address] [place] [address] 93107 Holt # 0.69 x10EE3/UL Normal 0.20 - 1.00 [facility] Comment on above: Performed By: #### 2 55631 #### [facility],[address] [place] [address] 11225 MONOS % 9.7 % Normal 0.0 - 10.0 [facility] Comment on above: Performed By: #### 2 56541 #### [facility],[address] [place], [place] [address] Morphology Pasquale (Bld) [Interp] N/A Normal [facility] Comment on above: Performed By: #### 2 10171 #### [facility],[address] [place] [address] Neut # 4.04 x10EE3/UL Normal 1.50 - 7.10 [facility] Comment on above: Performed By: #### 2 97017 #### [facility],[address] [place] [address] 74907 Neutrophils/100 WBC (Bld) 56.9 % Normal 46.0 - 76.0 [facility] Comment on above: Performed By: #### 2 58767 #### [facility],[address] [place] [address] 73388 PLATELET 281 x10EE3/UL Normal 150 - 450 [facility] Comment on above: Performed By: #### 2 66875 #### [facility],[address] [place] [address] 57000 Platelet mean volume (Bld) [Entitic vol] 7.7 fL Normal 6.6 - 10.5 [facility] Comment on above: Result Comment: AUTO MATED DIFFERENTIAL Performed By: #### 2 71295 #### [facility],[address] [place] [address] 28376 RBC 4.26 x 10EE6/UL Normal 4.10 - 5.30 [facility] Comment on above: Performed By: #### 2 37983 #### [facility],[address] [place] [address] 98197 WBC 7.1 x 10EE3/UL Normal 4.5 - 10.8 [facility] Comment on above: Performed By: #### 2 13063 #### [facility],[address] [place] [address] 32507 CHEST 2 VIEWSon 10-09-2023 CHEST 2 VIEWS [place] [address] Patient: HANNAH KERNS Phone#: : 1940 Age: 83 Gender: F Pt. Type: Out Account: [id number] Location: [facility] Ordering: [facility] Exam Date: 10/09/2023/15:12 Family Phys: ASIA MCKEONPOOL Charge Code: [id number] Physician: [place] Order #: [id number] Dose#: PROCEDURE: X-RAY CHEST 2 VIEWS COMPARISON: [facility], XR, CHEST PA/LAT, 11/28/2016, 13:59. INDICATIONS: Pre-op. FINDINGS: LUNGS: Normal. No significant pulmonary parenchymal abnormalities. VASCULATURE: Normal. Unremarkable pulmonary vasculature. CARDIAC: Normal. No cardiac silhouette abnormality or cardiomegaly. MEDIASTINUM: Aortic arch calcification PLEURA: Normal. No effusion or pleural thickening. BONES: Degenerative changes of the spine OTHER: Negative. CONCLUSION: 1. No acute pulmonary parenchymal abnormality Dictated by: Francesca Emmanuel MD on 10/09/2023 at 17:12 Approved by: Francesca Emmanuel MD on 10/09/2023 at 17:14 Normal [facility] CV ECHO COMPLETEon CV ECHO COMPLETE [place] [address] Patient: HANNAH KERNS Phone#: : 1940 Age: 83 Gender: F Pt. Type: Out Account: [id number] Location: [facility] Ordering: [facility] [employer] Exam Date: 09/25/202311:06 Family Phys: Charge Code: [id number] Physician: [place] Order #: [id number] Dose#: PROCEDURE: ECHOCARDIOGRAM WITH DOPPLER AND COLOR FLOW HISTORY: Patient is an 83-year-old female with history of aortic regurgitation INDICATIONS: MURMUR, AORTIC REGURG COMPARISON: None. TECHNIQUE: A 2-D ultrasound, color spectral Doppler and M-mode evaluation of the heart and great vessels. PATIENT MEASUREMENTS: Height (in.): 62 BSA: 1.79 Weight (lbs.): 171 BP: 155/76 Sports Betting Manager: LILIAN M MODE 2D MEASUREMENTS AND CALCULATIONS: LVIDd: 5.04 cm LVIDs: 3.10 cm IVSd: 1.1 cm LVOT diam: 1.93 cm FS: 38.38 % Ao Root diam: 3.26 cm LA diam: 4.8 cm LA Volume Index: 40 mL/m2 LA A4 Area: 22.16 cm2 RA A4 Area: 13.4 cm2 RVDd: 2.79 cm TAPSE: DOPPLER MEASUREMENTS AND CALCULATIONS MITRAL MV E MAX matias: 0.59 m/s MV A MAX matias: 0.81 m/s MV E-A ratio: 0.73 Lat Peak E' Matias 6 cm/sec Septal Peak E' MATIAS 4 cm/sec E/E' medial 14 E/E' lateral 10 Continued Report - Page 2 of 3 Patient: HANNAH KERNS Phone#: : 1940 Age: 83 Gender: F Pt. Type: Out Account: [id number] Location: [facility] Ordering: 20:20 [employer] [employer] Exam Date: 09/25/2023/11:06 Family Phys: Charge Code: [id number] Physician: [place] Order #: [id number] Dose#: AORTIC Ao V2 max: 1.88 m/s Ao max P.14 mm[Hg] ALEX (V Max): 2.07 cm2 AI max matias 4.10 m/s AI max PG 67.30 mm[Hg] AI dec [place] 2.20 m/s2 AI PHT 552.71 ms LV V1 Max 1.34 m/s LV V1 Max PG 7.17 mm[Hg] PULMONIC PA V2 Max 0.98 m/s PA Max PG 3.83 mm[Hg] TRICUSPID TR Max Matias 2.28 m/s TR max PG 20.75 mm[Hg] RVSP 24 mm Hg 2D/M-MODE AND COLOR FLOW LEFT VENTRICLE: There is mild concentric left ventricular hypertrophy. Left ventricle is normal in size. Systolic ejection fraction is 60-65%. There are no regional wall motion abnormality seen. Indeterminate diastolic function WALL MOTION: 1 - Basal anterior: Normal. 7 - Mid anterior: Normal. 13 - Apical anterior: Normal. 2 - Basal anteroseptal: Normal. 8 - Mid anteroseptal: Normal. 14 - Apical septal: Normal. 3 - Basal inferoseptal: Normal. 9 - Mid inferoseptal: Normal. 15 - Apical inferior: Normal. 4 - Basal inferior: Normal. 10-Mid inferior: Normal. 16 - Apical lateral: Normal. 5 - Basal inferolateral: Normal. 11-Mid inferolateral: Normal. 6 - Basal anterolateral: Normal. 12-Mid anterolateral: Normal. RIGHT VENTRICLE: Right ventricle is normal in size and systolic function. LEFT ATRIUM: Left atrium is mildly enlarged RIGHT ATRIUM: Right atrium is normal size. ATRIAL SEPTUM: There is no large interatrial shunt seen. PFO was not assessed MITRAL VALVE: Mitral valve appears normal structure. There is mild regurgitation and no stenosis seen. TRICUSPID VALVE: Tricuspid valve appears normal in structure. There is trivial regurgitation no stenosis seen. AORTIC VALVE: Aortic valve is trileaflet with mild calcification. There is mild regurgitation and no stenosis seen. PULMONIC VALVE: Pulmonic valve is normal structure. There is no regurgitation or stenosis seen AORTIC ROOT: Aortic root is normal in size. AORTIC ARCH: Inadequately visualized Continued Report - Page 3 of 3 Patient: HANNAH KERNS Phone#: : 1940 Age: 83 Gender: F Pt. Type: Out Account: [id number] Location: 052 Ordering: ASIA SPENCE Exam Date: 09/25/2023/11:06 Family Phys: Charge Code: [id number] Physician: [place] Order #: [id number] Dose#: DESC THORACIC AORTA: Inadequately visualized. Doppler shows normal systolic diastolic flow IVC/SVC: IVC is normal in size with more than 50% collapse of inspiration. Estimated atrial pressure is 3 mm Hg. PULMONARY VEINS: Normal pulmonic vein flow PERICARDIUM: There is no pericardial effusion seen CONCLUSION: 1. There is mild concentric left ventricular hypertrophy. Left ventricle is normal in size. Systolic ejection fraction is 60-65% with normal wall motion. 2. Left atrium is mildly enlarged. 3. There is mild mitral valve regurgitation seen 4. There is trivial tricuspid valve regurgitation 5. Aortic valve is trileaflet with mild calcification. There is mild aortic valve regurgitation and no stenosis seen 6. Right ventricle is normal in size and systolic function 7. Estimated right ventricle systolic pressure is 24 mm Hg Dictated by: KEVIN PASCUAL MD on 09/26/2023 at 10:22 Approved by: KEVIN PASCUAL MD on 09/26/2023 at 10:40 Normal [facility] URINE CULTURE [CCL]on 2023 Bacteria identified Cx Nom (U) URCUL See Results Below See Below CULTURE, URINE NORMAL UROGENITAL TRISHA <10,000 CFU/ml Normal urogenital trisha SOURCE: Urine (Nonspecific) [place] [address] Ethan Pedersen III, M.D. [id number] SEND TO IC NO Normal [facility] Comment on above: Performed By: #### 2 16014 ####[facility],[address] [place], [place] [address] Bacteria Ur Culton 4 Bacteria identified Cx Nom (U) ORGANISM ID: 1 <10,000 CFU/ml Normal urogenital trisha Normal [facility] Comment on above: Performed By: #### 6 30-4 #### [facility] CLIA [id number] [address] [place] [address] [place] CBC (NO DIFF)on 09-21-2023 CBC panel Auto (Bld) Normal [facility] Comment on above: Result Comment: CBC( WITHOUT DIFFERENTIAL) Performed By: #### 2 81458 #### [facility],[address] [place], [place] [address] Erythrocyte distribution width (RBC) [Ratio] 13.6 % Normal 12.0 - 15.6 [facility] Comment on above: Performed By: #### 2 55485 #### [facility],[address] [place], [place] [address] Hematocrit (Bld) [Volume fraction] 41.4 % Normal 34.0 - 46.0 [facility] Comment on above: Performed By: #### 2 14618 #### [facility],[address] [place] [address] 72693 Hemoglobin (Bld) [Mass/Vol] 13.7 g/dL Normal 12.0 - 16.0 [facility] Comment on above: Performed By: #### 2 39357 #### [facility],[address] [place] [address] 96988 MCH (RBC) [Entitic mass] 29 pg Normal 27 - 33 [facility] Comment on above: Performed By: #### 2 29249 #### [facility],[address] [place] [address] 10421 MCHC 33 X10 3 Normal 32 - 36 [facility] Comment on above: Performed By: #### 2 45858 #### [facility],[address] [place] [address] 25594 MCV (RBC) [Entitic vol] 89 fL Normal 80 - 99 [facility] Comment on above: Performed By: #### 2 08610 #### [facility],[address] [place] [address] 31049 PLATELET 285 x10EE3/UL Normal 150 - 450 [facility] Comment on above: Performed By: #### 2 95057 #### [facility],[address] [place] [address] 39978 Platelet mean volume (Bld) [Entitic vol] 7.7 fL Normal 6.6 - 10.5 [facility] Comment on above: Performed By: #### 2 01572 #### [facility],[address] [place] [address] 43085 RBC 4.66 x 10EE6/UL Normal 4.10 - 5.30 [facility] Comment on above: Performed By: #### 2 76381 #### [facility],[address] [place] [address] 23238 WBC 6.1 x 10EE3/UL Normal 4.5 - 10.8 [facility] Comment on above: Performed By: #### 2 64825 #### [facility],[address] [place] [address] 77454 CMP with eGFRon 09-21-2023 AGE 82 years Normal [facility] Comment on above: Performed By: #### 2 06934 ####[facility],[address] [place] [address] 93073 Albumin [Mass/Vol] 3.5 g/dL Normal 3.4 - 5.0 [facility] Comment on above: Performed By: #### 2 60474 ####[facility],[address] [place] [address] 34929 Albumin/Globulin [Mass ratio] 1.0 {ratio} Normal 0.9 - 1.6 [facility] Comment on above: Performed By: #### 2 45478 ####[facility],[address] [place] [address] 06228 ALK PHOS 75 U/L Normal 46 - 116 [facility] Comment on above: Performed By: #### 2 45335 ####[facility],[address] [place] [address] 91768 ALT [Catalytic activity/Vol] 17 U/L Normal 16 - 63 [facility] Comment on above: Performed By: #### 2 88787 ####[facility],[address] [place] [address] 37307 Anion gap [Moles/Vol] 8 mmol/L Low 10 - 20 [facility] Comment on above: Performed By: #### 2 32649 ####[facility],[address] [place] [address] 04931 AST [Catalytic activity/Vol] 16 U/L Normal 13 - 39 [facility] Comment on above: Performed By: #### 2 65450 ####[facility],[address] [place] [address] 61214 B/C RATIO 14 ratio Normal 0 - 30 [facility] Comment on above: Performed By: #### 2 24302 ####[facility],[address] [place] [address] 21883 Bilirubin [Mass/Vol] 0.4 mg/dL Normal 0.2 - 1.0 [facility] Comment on above: Performed By: #### 2 34497 ####[facility],[address] [place] [address] 40377 Calcium [Mass/Vol] 9.4 mg/dL Normal 8.5 - 10.1 [facility] Comment on above: Performed By: #### 2 40348 ####[facility],[address] [place] [address] 46249 Chloride [Moles/Vol] 104 mmol/L Normal 98 - 107 [facility] Comment on above: Performed By: #### 2 42972 ####[facility],[address] [place] [address] 01301 CMP with eGFR Normal [facility] Comment on above: Result Comment: COMP REHENSIVE METABOLIC PANEL Performed By: #### 2 17262 ####[facility],[address] [place] [address] 82832 CO2 [Moles/Vol] 29.0 mmol/L Normal 21.0 - 32.0 [facility] Comment on above: Performed By: #### 2 16974 ####[facility],[address] [place] [address] 35985 Creatinine [Mass/Vol] 0.80 mg/dL Normal 0.55 - 1.02 [facility] Comment on above: Performed By: #### 2 36815 ####[facility],[address] [place] [address] 05544 GFR/1.73 sq M.predicted among non-blacks MDRD (S/P/Bld) [Vol rate/Area] mL/min/{1.73_m2} Normal 60 - 999 [facility] Comment on above: Performed By: #### 2 42274 ####[facility],[address] [place] [address] 79549 Result Comment: ACCO RDING TO THE NATIONAL KIDNEY DISEASE EDUCATION PROGRAM(NKDE), A NORMAL eGFR IS A VALUE GREATER THAN OR EQUAL TO 60 ML/MIN/1.73 SQ METERS. CHRONIC KIDNEY DISEASE: <60mL/MIN/1.73 SQ METERS KIDNEY FAILURE: <15mL/MIN/1.73 SQ METERS THIS TEST SHOULD ONLY BE USED FOR PATIENTS 18 YEARS OF AGE AND OLDER. Globulin (S) [Mass/Vol] 3.4 g/dL Normal 1.5 - 3.8 [facility] Comment on above: Performed By: #### 2 [id number] ####[facility],[address] [place] [address] 14774 Glucose [Mass/Vol] 88 mg/dL Normal 74 - 106 [facility] Comment on above: Performed By: #### 2 45225 ####[facility],[address] [place] [address] 60729 Potassium [Moles/Vol] 4.2 mmol/L Normal 3.5 - 5.1 [facility] Comment on above: Performed By: #### 2 34246 ####[facility],[address] [place] [address] 91017 Protein [Mass/Vol] 6.9 g/dL Normal 6.4 - 8.2 [facility] Comment on above: Performed By: #### 2 34477 ####[facility],[address] [place] [address] 34022 Sodium [Moles/Vol] 137 mmol/L Normal 136 - 145 [facility] Comment on above: Performed By: #### 2 70638 ####[facility],[address] [place] [address] 75445 Urea nitrogen [Mass/Vol] 11 mg/dL Normal 7 - 18 [facility] Comment on above: Performed By: #### 2 63362 ####[facility],[address] [place] [address] 37560 LIPID PROFILEon 09-21-2023 Cholesterol [Mass/Vol] 209 mg/dL Normal 0 - 240 [facility] Comment on above: Performed By: #### 2 61365 ####[facility],[address] [place], [place] [address] Cholesterol in HDL [Mass/Vol] 52 mg/dL Normal 40 - 60 [facility] Comment on above: Performed By: #### 2 61914 ####[facility],[address] [place] [address] 37769 Cholesterol in LDL [Mass/Vol] 140 mg/dL High 0 - 129 [facility] Comment on above: Performed By: #### 2 94873 ####[facility],[address] [place] [address] 37063 Cholesterol.total/Chol esterol in HDL [Mass ratio] 4.0 {ratio} Normal 0.0 - 5.0 [facility] Comment on above: Performed By: #### 2 08421 ####[facility],[address] [place] [address] 58826 Lipid 1996 panel Normal [facility] Comment on above: Result Comment: LIPI D PROFILE Performed By: #### 2 75123 ####[facility],[address] [place] [address] 87682 Triglyceride [Mass/Vol] 85 mg/dL Normal 0 - 150 [facility] Comment on above: Performed By: #### 2 58764 ####[facility],[address] [place] [address] 84007 TSHon 09-21-2023 TSH Qn 5.42 m[IU]/L High 0.35 - 3.74 [facility] Comment on above: Performed By: #### 2 25200 #### [facility],[address] [place] [address] 40291 BONE DENSITY STUDYon 024 Bone density scan [place] [address] Patient: HANNAH KERNS Phone#: : 1940 Age: 82 Gender: F Pt. Type: Out Account: [id number] Location: [facility] Ordering: ASIA SPENCE Exam Date: 09/18/2023/14:21 Family Phys: Charge Code: [id number] Physician: [place] Order #: [id number] Dose#: PROCEDURE: BONE DENSITY STUDY TECHNIQUE: Lumbar vertebral and proximal femoral dual-energy X-ray absorptiometry (DXA) was performed on a central Language [employer] device. SPINE ANALYSIS RESULTS: Average lumbar bone mineral density (BMD) (g/cm2): 1.320 Lumbar T-score (standard deviation relative to young adult mean BMD): 1.2 Lumbar Z-score (standard deviation relative to age matched control group): 2.6 SPINE CLASSIFICATION: Normal (T-score > -1.0). HIP ANALYSIS RESULTS: Left femoral bone mineral density (BMD) (g/cm2): 0.950 Right femoral bone mineral density (BMD) (g/cm2): 0.937 Femur T-score (standard deviation relative to young adult mean BMD): -0.5 Femur Z-score (standard deviation relative to age matched control group): 1.3 HIP CLASSIFICATION (World Health Organization): Normal (T-score > -1.0). Note: The 2007 International Society for Clinical Densitometry (ISCD) Official Positions state that osteoporosis in danae-menopausal and post-menopausal women and in men age 50 and older may be diagnosed if the T-score of the lumbar spine, total hip, or femoral neck is -2.5 or less. Hip BMD is reported from the femoral neck or total proximal femur whichever is lowest. In pre-menopausal women and in men younger than age 50, T-scores may be used but Z-scores are preferred. In this patient group, a Z-score of -2.0 or lower is defined as below the expected range for age. FRAX is a computer-based algorithm which uses easily obtained clinical risk factors combined with femoral neck BMD or T-score to estimate an individual 10-year fracture probability. FRAX with BMD predicts fracture risk better than clinical risk factors or BMD alone. It is not appropriate to use FRAX to monitor treatment response. ADDITIONAL FINDINGS: No significant additional findings. Ten year probability of major osteoporotic fracture 13.5%. Ten year probability of hip fracture 3.5%. Dictated by: Maggie Cadena MD on 09/18/2023 at 16:52 Continued Report - Page 2 of 2 Patient: HANNAH KERNS Phone#: : 1940 Age: 82 Gender: F Pt. Type: Out Account: [id number] Location: [facility] Ordering: ASIA SPENCE Exam Date: 09/18/2023/14:21 Family Phys: Charge Code: [id number] Physician: [place] Order #: [id number] Dose#: Approved by: Maggie Cadena MD on 09/18/2023 at 16:54 Normal [facility] CBC + DIFFon 08-17-2022 Baso # 0.00 x10EE3/UL Normal 0.00 - 0.10 [facility] Comment on above: Performed By: #### 2 65177 #### [address] [address] Basophils/100 WBC (Bld) 0.7 % Normal 0.0 - 2.0 [facility] Comment on above: Performed By: #### 2 02358 #### [facility],[address] [place] [address] CBC + DIFF Normal [facility] Comment on above: Result Comment: CBC- COMPLETE BLOOD COUNT Performed By: #### 2 87243 #### [facility],[address] [place] [address] 85186 EO # 0.10 x10EE3/UL Normal 0.00 - 0.50 [facility] Comment on above: Performed By: #### 2 04695 #### [facility],[address] [place] [address] Eosinophils/100 WBC (Bld) 1.8 % Normal 0.0 - 7.0 [facility] Comment on above: Performed By: #### 2 71386 #### [facility],[address] [place] [address] Erythrocyte distribution width (RBC) [Ratio] 13.9 % Normal 12.0 - 15.6 [facility] Comment on above: Performed By: #### 2 69182 #### [facility],[address] [place] [address] Hematocrit (Bld) [Volume fraction] 38.7 % Normal 34.0 - 46.0 [facility] Comment on above: Performed By: #### 2 64487 #### [facility],[address] [place], [place] [address] Hemoglobin (Bld) [Mass/Vol] 13.0 g/dL Normal 12.0 - 16.0 [facility] Comment on above: Performed By: #### 2 65516 #### [facility],[address] [place] [address] 33718 Lymph # 1.30 x10EE3/UL Normal 0.80 - 2.80 [facility] Comment on above: Performed By: #### 2 75351 #### [facility],[address] [place], [place] [address] Lymphocytes/100 WBC (Bld) 18.5 % Low 20.0 - 45.0 [facility] Comment on above: Performed By: #### 2 78816 #### [facility],[address] [place] [address] MANUAL DIFF N/A Normal [facility] Comment on above: Performed By: #### 2 79991 #### [facility],[address] [place] [address] MCH (RBC) [Entitic mass] 30 pg Normal 27 - 33 [facility] Comment on above: Performed By: #### 2 70886 #### [facility],[address] [place] [address] MCHC 34 X10 3 Normal 32 - 36 [facility] Comment on above: Performed By: #### 2 91772 #### [facility],[address] [place] [address] MCV (RBC) [Entitic vol] 89 fL Normal 80 - 99 [facility] Comment on above: Performed By: #### 2 73908 #### [facility],[address] [place] [address] Holt # 0.40 x10EE3/UL Normal 0.20 - 1.00 [facility] Comment on above: Performed By: #### 2 17376 #### [facility],[address] [place] [address] MONOS % 6.6 % Normal 0.0 - 10.0 [facility] Comment on above: Performed By: #### 2 92752 #### [facility],[address] [place] [address] Morphology Pasquale (Bld) [Interp] N/A Normal [facility] Comment on above: Performed By: #### 2 19876 #### [facility],[address] [place] [address] Neut # 4.90 x10EE3/UL Normal 1.50 - 7.10 [facility] Comment on above: Performed By: #### 2 57616 #### [facility],[address] [place] [address] 08207 Neutrophils/100 WBC (Bld) 72.4 % Normal 46.0 - 76.0 [facility] Comment on above: Performed By: #### 2 45426 #### [facility],[address] [place] [address] 94159 PLATELET 268 x10EE3/UL Normal 150 - 450 [facility] Comment on above: Performed By: #### 2 35924 #### [facility],[address] [place] [address] 37377 Platelet mean volume (Bld) [Entitic vol] 7.4 fL Normal 6.6 - 10.5 [facility] Comment on above: Result Comment: AUTO MATED DIFFERENTIAL Performed By: #### 2 02525 #### [facility],[address] [place] [address] 75955 RBC 4.34 x 10EE6/UL Normal 4.10 - 5.30 [facility] Comment on above: Performed By: #### 2 15395 #### [facility],[address] [place] [address] 47861 WBC 6.8 x 10EE3/UL Normal 4.5 - 10.8 [facility] Comment on above: Performed By: #### 2 20623 #### [facility],[address] [place] [address] 02880 CMP with eGFRon 08-17-2022 AGE 81 years Normal [facility] Comment on above: Performed By: #### 2 29482 #### [facility],[address] [place] [address] 96410 Albumin [Mass/Vol] 3.2 g/dL Low 3.4 - 5.0 [facility] Comment on above: Performed By: #### 2 58489 #### [facility],[address] [place] [address] 05409 Albumin/Globulin [Mass ratio] 1.1 {ratio} Normal 0.9 - 1.6 [facility] Comment on above: Performed By: #### 2 28590 #### [facility],[address] [place] [address] 31122 ALK PHOS 62 U/L Normal 46 - 116 [facility] Comment on above: Performed By: #### 2 03581 #### [facility],[address] [place] [address] 51332 ALT [Catalytic activity/Vol] 23 U/L Normal 14 - 59 [facility] Comment on above: Performed By: #### 2 63949 #### [facility],[address] [place] [address] 22936 Anion gap [Moles/Vol] 13 mmol/L Normal 10 - 20 [facility] Comment on above: Performed By: #### 2 81436 #### [facility],[address] [place] [address] 86098 AST [Catalytic activity/Vol] 16 U/L Normal 13 - 39 [facility] Comment on above: Performed By: #### 2 88459 #### [facility],[address] [place] [address] 93746 B/C RATIO 12 ratio Normal 0 - 30 [facility] Comment on above: Performed By: #### 2 11443 #### [facility],[address] [place] [address] 21855 Bilirubin [Mass/Vol] 0.4 mg/dL Normal 0.2 - 1.0 [facility] Comment on above: Performed By: #### 2 88525 #### [facility],[address] [place] [address] 97813 Calcium [Mass/Vol] 8.2 mg/dL Low 8.5 - 10.1 [facility] Comment on above: Performed By: #### 2 90019 #### [facility],[address] [place] [address] 83989 Chloride [Moles/Vol] 108 mmol/L High 98 - 107 [facility] Comment on above: Performed By: #### 2 10924 #### [facility],[address] [place] [address] 13850 CMP with eGFR Normal [facility] Comment on above: Result Comment: COMP REHENSIVE METABOLIC PANEL Performed By: #### 2 84822 #### [facility],[address] [place] [address] 47346 CO2 [Moles/Vol] 22.7 mmol/L Normal 21.0 - 32.0 [facility] Comment on above: Performed By: #### 2 14071 #### [facility],[address] [place] [address] 21310 Creatinine [Mass/Vol] 0.68 mg/dL Normal 0.55 - 1.02 [facility] Comment on above: Performed By: #### 2 41064 #### [facility],[address] [place] [address] 68636 GFR/1.73 sq M.predicted among non-blacks MDRD (S/P/Bld) [Vol rate/Area] mL/min/{1.73_m2} Normal 60 - 999 [facility] Comment on above: Performed By: #### 2 62741 #### [facility],[address] [place] [address] 98649 Result Comment: ACCO RDING TO THE NATIONAL KIDNEY DISEASE EDUCATION PROGRAM(NKDE), A NORMAL eGFR IS A VALUE GREATER THAN OR EQUAL TO 60 ML/MIN/1.73 SQ METERS. CHRONIC KIDNEY DISEASE: <60mL/MIN/1.73 SQ METERS KIDNEY FAILURE: <15mL/MIN/1.73 SQ METERS THIS TEST SHOULD ONLY BE USED FOR PATIENTS 18 YEARS OF AGE AND OLDER. Globulin (S) [Mass/Vol] 2.8 g/dL Normal 1.5 - 3.8 [facility] Comment on above: Performed By: #### 2 15336 #### [facility],[address] [place] [address] 43323 Glucose [Mass/Vol] 115 mg/dL High 74 - 106 [facility] Comment on above: Performed By: #### 2 37344 #### [facility],[address] [place] [address] 35382 Potassium [Moles/Vol] 3.3 mmol/L Low 3.5 - 5.1 [facility] Comment on above: Performed By: #### 2 57556 #### [facility],[address] [place] [address] 61322 Protein [Mass/Vol] 6.0 g/dL Low 6.4 - 8.2 [facility] Comment on above: Performed By: #### 2 92689 #### [facility],[address] [place] [address] 77334 Sodium [Moles/Vol] 140 mmol/L Normal 136 - 145 [facility] Comment on above: Performed By: #### 2 85283 #### [facility],[address] [place] [address] Urea nitrogen [Mass/Vol] 8 mg/dL Normal 7 - 18 [facility] Comment on above: Performed By: #### 2 27507 #### [facility],[address] [place] [address] CORONAVIRUS (SARS) ANTIGEN T ESTon 08-17-2022 EXTERNAL QC DONE? YES Normal [facility] Comment on above: Performed By: #### 2 85915 #### [facility],[address] [place], [place] [id number] INTERNAL CONTROL PASS Normal [facility] Comment on above: Performed By: #### 2 98469 #### [facility],[address] [place] [address] 29015 SARS ANTIGEN Negative Normal NORMAL: NEGATIVE [facility] Comment on above: Performed By: #### 2 38433 #### [facility],[address] [place] [address] 65317 SEND TO ? NO Normal [facility] Comment on above: Result Comment: SARS -CoV-2 THIS TEST IS BEING USED UNDER THE FDA EUA PROCEDURE. THIS ASSAY HAS BEEN VALIDATED AT [facility] FOR USE WITH NASAL AND NASOPHARYNGEAL SWAB SPECIMENS. INTERPRETIVE DATA TEST RESULTS SHOULD ALWAYS BE CONSIDERED IN THE CONTEXT OF CLINICAL OBSERVATIONS AND EPIDEMIOLOGICAL DATA IN MAKING FINAL DIAGNOSIS AND PATIENT MANAGEMENT DECISIONS. PATIENT MANAGEMENT SHOULD FOLLOW CURRENT CDC GUIDELINES. THE ABDULLAHI SARS ANTIGEN LORI DOES NOT DIFFERENTIATE BETWEEN SARS-CoV & SARS-CoV-2. A POSITIVE TEST RESULT INDICATES THE PRESENCE OF SARS-CoV-2 NUCLEOCAPSID PROTEIN ANTIGEN, AND THE PATIENT IS INFECTED WITH THE VIRUS AND PRESUMED TO BE CONTAGIOUS. A NEGATIVE TEST RESULT FOR THIS TEST MEANS THAT SARS-CoV-2 NUCLEOCAPSID PROTEIN ANTIGEN WAS NOT PRESENT IN THE SPECIMEN ABOVE THE LIMIT OF DETECTION. HOWEVER, A NEGATIVE RESULT DOES NOT RULE OUT COVID-19 AND SHOULD NOT BE USED THE SOLE BASIS FOR TREATMENT OR PATIENT MANAGEMENT DECISIONS. A NEGATIVE RESULT DOES NOT EXCLUDE THE POSSIBILITY OF COVID-19. NEGATIVE RESULTS, FROM PATIENTS WITH SYMPTOM ONSET BEYOND FIVE DAYS, SHOULD BE TREATED PRESUMPTIVE AND CONFIRMATION WITH A MOLECULAR ASSAY, IF NECESSARY, FOR PATIENT MANAGEMENT, MAY BE PERFORMED. WHEN DIAGNOSTIC TESTING IS NEGATIVE, THE POSSIBLILTY OF A FALSE NEGATIVE RESULT SHOULD BE CONSIDERED IN THE CONTEXT OF A PATIENT'S RECENT EXPOSURES AND THE PRESENCE OF CLINICAL SIGNS AND SYMPTOMS CONSISTENT WITH COVID-19. THE POSSIBILITY OF A FALSE NEGATIVE RESULT SHOULD ESPECIALLY BE CONSIDERED IF THE PATIENT'S RECENT EXPOSURES OR CLINICAL PRESENTATION INDICATE THAT COVID-19 IS LIKELY, AND DIAGNOSTIC TESTS FOR OTHER CAUSES OF ILLNESS (e.g., OTHER RESPIRATORY ILLNESS) ARE NEGATIVE. IF COVID-19 IS STILL SUSPECTED BASED ON EXPOSURE HISTORY TOGETHER WITH OTHER CLINICAL FINDINGS, RE-TESTING SHOULD BE CONSIDERED BY HEALTHCARE PROVIDERS IN CONSULTATION WITH PUBLIC HEALTH AUTHORITIES. Performed By: #### 2 25756 #### [place] [address] CT ABDOMEN/PELVIS [facility] 2022 CT ABDOMEN/PELVIS [place] [address] Patient: HANNAH KERNS Phone#: : 1940 Age: 81 Gender: F Pt. Type: ER Account: [id number] Location: 052 Ordering: DR. LIZZETTE DAVID Exam Date: 08/17/2022/5:03 Family Phys: Charge Code: [id number] Physician: [place] Order #: [id number] Dose#: [id number] PROCEDURE: CT ABDOMEN/PELVIS WITH CONTRAST COMPARISON: None. INDICATIONS: Abdominal pain. TECHNIQUE: After obtaining the patient's consent, CT images were created with non-ionic intravenous contrast material. All CT scans at this facility use dose modulation, iterative reconstruction, and/or weight based dosing when appropriate to reduce radiation dose to as low as reasonably achievable. IV CONTRAST: Omnipaque 350,80ml TOTAL DOSE: 14.80 CTDIvol(mGy) FINDINGS: LIVER: Normal. No enlargement, atrophy, abnormal density, or significant focal lesion. BILIARY: Normal. No visible dilatation or calcification. PANCREAS: Normal. No lesion, fluid collection, ductal dilatation, or atrophy. SPLEEN: Normal. No enlargement or focal lesion. KIDNEYS: Normal. No mass, obstruction, or calcification. ADRENALS: Normal. No mass or enlargement. AORTA/VASCULAR: Aortic calcifications present. No aneurysm or dissection. RETROPERITONEUM: Normal. No mass or adenopathy. BOWEL/MESENTERY: A small hiatal hernia is present. Sigmoid diverticula are present without inflammatory change. In oblong 31 x 19 x 25 millimeter soft tissue mass is present in the mid right abdomen in close approximation to small-bowel and is of questionable etiology. No other abdominal masses or adenopathy are identified. ABDOMINAL WALL: A left paraumbilical hernia measuring 15 millimeters is present with fat. URINARY BLADDER: Normal. No visible focal wall thickening, lesion, or calculus. PELVIC NODES: Normal. No adenopathy. PELVIC ORGANS: The uterus is absent. There is a 22 millimeter left adnexal cyst. BONES: Mild degenerative changes of the spine are present. Continued Report - Page 2 of 2 Patient: HANNAH KERNS Phone#: : 1940 Age: 81 Gender: F Pt. Type: ER Account: [id number] Location: 052 Ordering: DR. LIZZETTE DAVID Exam Date: 08/17/2022/5:03 Family Phys: Charge Code: [id number] Physician: [place] Order #: [id number] Dose#: [id number] LUNG BASES: Normal. No visible pulmonary or pleural disease. OTHER: Negative. CONCLUSION: 1. [place] soft tissue mass in the mid right mesentery is present and is of questionable etiology. 2. Paraumbilical hernia with fat. Dictated by: Maggie Cadena MD on 08/17/2022 at 10:23 Approved by: Maggie Cadena MD on 08/17/2022 at 10:31 Normal [facility] URINALYSISon 08-17-2022 Amorphous NONE Normal [facility] Comment on above: Performed By: #### 2 16571 #### [facility],[address] [place] [address] Bacteria 1+ Normal [facility] Comment on above: Performed By: #### 2 44052 #### [facility],[address] [place] [address] Bilirubin Ql (U) Negative Normal NORMAL: NEGATIVE [facility] Comment on above: Performed By: #### 2 78326 #### [facility],[address] [place] [address] Casts NONE Normal [facility] Comment on above: Performed By: #### 2 46066 #### [facility],[address] [place], [place] [id number] Clarity (U) clear Normal NORMAL: CLEAR [facility] Comment on above: Performed By: #### 2 51614 #### [facility],[address] [place], [place] [id number] Color (U) p.yel Normal NORMAL: YELLOW [facility] Comment on above: Performed By: #### 2 35287 #### [facility],[address] [place] [address] Crystals LM Nom (Urine sed) NONE Normal [facility] Comment on above: Performed By: #### 2 22289 #### [facility],[address] [place] [address] 28060 Epi Cells MODERATE Normal [facility] Comment on above: Performed By: #### 2 10380 #### [facility],[address] [place] [address] 66268 Glucose Ql (U) NORM Normal NORMAL: NORMAL [facility] Comment on above: Performed By: #### 2 81398 #### [facility],[address] [place] [address] 19739 Hemoglobin Ql (U) 25 Abnormal NORMAL: NEGATIVE [facility] Comment on above: Performed By: #### 2 10327 #### [facility],[address] [place] [address] 37311 Ketone 5 Abnormal NORMAL: NEGATIVE [facility] Comment on above: Performed By: #### 2 55435 #### [facility],[address] [place] [address] 29032 Leukocytes Negative Normal NORMAL: NEGATIVE [facility] Comment on above: Performed By: #### 2 00006 #### [facility],[address] [place] [address] 57514 Mucous NONE Normal [facility] Comment on above: Performed By: #### 2 66002 #### [facility],[address] [place] [address] 92943 Nitrite Ql (U) Negative Normal NORMAL: NEGATIVE [facility] Comment on above: Performed By: #### 2 06684 #### [facility],[address] [place] [address] 61660 pH (U) 8 [pH] Normal NORMAL: 5.0-8.0 [facility] Comment on above: Performed By: #### 2 70396 #### [facility],[address] [place] [address] 34761 Protein Ql (U) 15 Abnormal NORMAL: NEGATIVE [facility] Comment on above: Performed By: #### 2 99269 #### [facility],[address] [place] [address] 16590 Rbc 0-5 Normal 0-3/hpf [facility] Comment on above: Performed By: #### 2 52425 #### [facility],[address] [place] [address] Sp [place] 1.010 Normal NORMAL: 1.010-1.030 [facility] Comment on above: Performed By: #### 2 68387 #### [facility],[address] [place] [address] Specimen Type Void Normal [facility] Comment on above: Performed By: #### 2 24388 #### [facility],[address] [place] [address] Urinalysis dipstick W Reflex Microscopic panel (U) SEE BELOW Normal [facility] Comment on above: Result Comment: MICR OSCOPIC Performed By: #### [id number] #### [facility],[address] [place] [address] Urobilinog NORM Normal NORMAL: NORMAL [facility] Comment on above: Performed By: #### [id number] #### [facility],[address] [place], [place] [id number] Wbc NONE Normal 0-5/hpf [facility] Comment on above: Performed By: #### [id number] #### [facility],[address] [place] [address] Yeast NONE Normal [facility] Comment on above: Performed By: #### [id number] #### [facility],[address] [place] [address] Vital Signs Date Time Vital Sign Value Performing Clinician Carroll montenegro 06-14-2024 13:29-0400 Body temperature 98.3 [degF] Reza Liao Work Phone: [place] 06-14-2024 13:29-040 Diastolic blood pressure 77 mm[Hg] Reza Liao Work Phone: [place] 06-14-2024 13:29-0400 Heart rate 71 /min Reza Liao Work Phone: [place] 06-14-2024 13:29-0400 Respiratory rate 16 /min Reza Liao Work Phone: [place] 06-14-2024 13:29-0400 SaO2% (BldA) [Mass fraction] 100 % Reza Liao Work Phone: [place] 06-14-2024 13:29-0400 Systolic blood pressure 141 mm[Hg] Reza Liao Work Phone: [place] 06-14-2024 12:20-0400 Body height 165.1 cm Reza Liao Work Phone: [place] 06-14-2024 12:20-0400 Body mass index (BMI) [Ratio] 30.3 kg/m2 Reza Liao Work Phone: [place] 06-14-2024 12:20-0400 Body weight 82.6 kg Reza Liao Work Phone: [place] Encounters Encounter Date Encounter Type Care Provider Facility Start: 10-16-2024 ambulatory Ghislaine Malys Facility:[facility] Start: 09-02-2024 End: 09-02-2024 Emergency department patient visit MILTON ANDREW [facility] Start: 06-17-2024 End: 06-17-2024 ambulatory Constantine Ludwig Facility:[place] Start: 06-14-2024 End: 06-14-2024 Emergency department patient visit Reza Liao Work Phone: -Emergency Department Work Phone: Start: 06-11-2024 End: 08-21-2024 [facility] Start: 06-03-2024 End: 06-03-2024 ambulatory Reza Copeland Keshawn Work Phone: [place] Work Phone: Start: 06-03-2024 End: 06-03-[address] Constantine Ludwig MD -Laboratory Work Phone: Start: 06-03-2024 End: 06-03-2024 ambulatory Constantine Ludwig Facility:[place] Start: 05-20-2024 End: 05-20-2024 ambulatory Reza Min Liao Work Phone: [place] Work Phone: Start: 05-20-2024 End: 05-20-[address] Constantine Ludwig MD -Radiology, [facility] Work Phone: Start: 05-20-2024 End: 05-20-2024 ambulatory Constantine Ludwig Facility:[place] Start: 05-14-2024 End: 05-14-2024 ambulatory Reza Liao Work Phone: [place] Work Phone: Start: 05-14-2024 End: 05-14-[address] Constantine Ludwig MD -Outpatient Bone Densitometry Work Phone: Start: 05-14-2024 End: 05-14-2024 ambulatory Constantine Dong [place] Facility:[place] Start: 04-21-2024 End: 04-21-[address] Constantine Ludwig MD -MRI - [facility] Work Phone: Start: 04-21-2024 End: 04-21-2024 ambulatory Constantine Dong Ludwig Facility:[place] Start: 03-31-2024 End: 03-31-[address] Constantine Ludwig MD -Laboratory, Phy Office 3rd Flr Start: 03-31-2024 End: 03-31-2024 ambulatory Constantine Dong [place] Facility:[place] Start: 03-19-2024 End: 03-19-[address] Constantine Ludwig MD -Laboratory Work Phone: Start: 03-19-2024 End: 03-19-2024 ambulatory Constantine Dong [place] Facility:[facility] Start: 03-07-2024 End: 03-07-2024 ambulatory ASIA SPENCE [facility] Start: 03-07-2024 [facility] Start: 02-26-2024 End: 02-26-2024 ambulatory ASIA SPENCE [facility] Start: 02-15-2024 End: 02-15-2024 ambulatory ASIA SPENCE [facility] Start: 02-14-2024 End: 02-15-2024 ambulatory ASIA SPENCE [facility] Start: 02-01-2024 End: 02-01-2024 ambulatory ASIA SPENCE [facility] Start: 01-23-2024 End: 01-23-2024 ambulatory ASIA SPENCE [facility] Start: 01-11-2024 End: 02-05-2024 ambulatory ASIA SPENCE [facility] Start: 01-11-2024 End: 02-05-2024 Encounter for general adult medical examination without abnormal findings FROYLAN LOUIS [facility] Start: 11-26-2023 End: 11-26-2023 ambulatory ASIA SPENCE [facility] Start: 11-08-2023 End: 01-10-2024 ambulatory ASIA SPENCE [facility] Start: 11-05-2023 End: 11-06-2023 Evaluation and management of inpatient [facility] Start: 10-09-2023 End: 10-09-2023 ambulatory [facility] Start: 10-09-2023 End: 10-09-2023 Encounter for other preprocedural examination [facility] Start: 09-25-2023 End: 09-25-2023 ambulatory ASIA SPENCE [facility] Start: 09-21-2023 End: 09-21-2023 ambulatory ASIA SPENCE [facility] Start: 09-18-2023 End: 09-18-2023 ambulatory ASIA SPENCE [facility] Start: 08-17-2022 End: 06-08-2023 Emergency department patient visit LIZZETTE CORONA DOS%LISA [facility] Procedures Date Procedure Procedure Detail Performing Clinician Start: 09-02-2024 Urinalysis ASIA DEL ANGEL Comment on above: Result Comment: URIN ALYSIS Performed By: #### [id number] ####[facility],[address] [place] [address] Start: 06-14-2024 Plain radiography of pelvis Reza Liao Work Phone: Start: 06-14-2024 End: 06-14-2024 X-ray of knee, four or more views Reza Liao Work Phone: Start: 05-20-2024 X-ray of lumbosacral spine Reza Liao Work Phone: Start: 05-14-2024 Dual energy X-ray absorptiometry Reza Liao Work Phone: Start: 04-21-2024 MRI of brain without contrast Reza Liao Work Phone: Start: 03-31-2024 Urine culture Reza montoya Work Phone: Start: 03-07-2024 Urinalysis ASIA DEL ANGEL Comment on above: Result Comment: URIN ALYSIS Performed By: #### [id number] #### [facility],[address] [place] [address] Start: 08-17-2022 Urinalysis LIZZETTE DOS %LISA Comment on above: Result Comment: URIN ALYSIS Performed By: #### 2 [id number] #### [facility],[address] [place] [address] Plan of Treatment Date Care Activity Detail Author Start: 06-14-2024 [facility] Patient Education ED Contusion, Lower Extremity ED [facility] Work Phone: [facility] referral [facility] Work Phone: Payers Date Payer Category Payer Self-pay 2020 Medicare [id number] 2004 Unknown [id number] 1940 Unknown [id number] 2.16.84 0.1.385073.3.579.2.651 1940 Unknown [id number] 2.16.8 40.1.502595.3.579.2.65 1940 Unknown [id number] 2.16.8 40.1.786597.3.579.2.651 1940 Unknown [id number] 2.16.8 40.1.200575.3.579.2. 1940 Unknown [id number] 2.16.8 40.1.009084.3.579.2. 1940 Unknown [id number] 2.16.8 40.1.755995.3.579.2. 1940 Unknown [id number] 2.16.8 40.1.768869.3.579.2. 1940 Unknown [id number] 2.16.8 40.1.860867.3.579.2. 1940 Unknown [id number] 2.16.8 40.1.547127.3.579.2. 1941 Unknown [id number] 2.16.8 40.1.833166.3.579.2. 1941 Unknown [id number] 2.16.8 40.1.647568.3.579.2. 1940 Unknown [id number] 2.16.8 40.1.095383.3.579.2. 1941 Unknown [id number] 2.16.8 40.1.925648.3.579.2. 1941 Unknown [id number] 2.16.8 40.1.969419.3.579.2. 1941 Unknown [id number] 2.16.8 40.1.993012.3.579.2. 1941 Unknown [id number] 2.16.8 40.1.231408.3.579.2.651 1941 Unknown [id number] 2.16.8 40.1.523723.3.579.2.651 1940 Unknown [id number] 2.16.8 40.1.387249.3.579.2.651 Unknown [id number] 2.16.8 40.1.533071.3.579.2.462 Unknown [id number] 2.16.8 40.1.924451.3.579.2.462 Unknown [id number] 2.16.8 40.1.684730.3.579.2.462 Unknown [id number] 2.16.8 40.1.685387.3.579.2.462 Unknown [id number] 2.16.8 40.1.417978.3.579.2.462 Unknown [id number] 2.16.8 40.1.403142.3.579.2.462 Unknown [id number] 2.16.8 40.1.982061.3.579.2.462 Unknown [id number] 2.16.8 40.1.653918.3.579.2.462 Unknown [id number] 2.16.8 40.1.090177.3.579.2.462 Social History Date Type Detail Facility [facility] [place] Work Phone: Start: 05-25-2024 End: 06-14-2024 Sex Female (finding) [place] Start: 1940 Sex Assigned At Female [facility] Start: 06-14-2024 [facility] (finding[facility] [place] Radiology Diagnostic study note 06-14-2024 Note Date & Type Note Facility 06-14-2024 Radiology Diagnostic study note [facility] Imaging Services [address] [place], [place] [address] Knee 4 or More Views MR#: [id number] Acct: [id number] Name: HANNAH KERNS Rep #: [id number] 3 : 1940 F 83 From: Tahira Holman MD PCP: Dr. Constantine Ludwig MD Status: REG E R Study:Knee 4 or More Views Date of Exam: 06/14/24 Exam# [id number] Ordering Dr: Jose Matthews DO PROCEDURE: KNEE 4 OR MORE VIEWS 06/14/2024 REASON FOR EXAM: KNEE pain. TECHNIQUE: 4 views of the left knee COMPARISON: None. FINDINGS: Bones: Prior left total knee arthroplasty. No acute fracture or suspicious osseous lesion. Joints: Total knee arthroplasty in satisfactory alignment. Effusion: No effusion. Soft tissues: Soft tissues are unremarkable. RAD/Knee 4 or More Views IMPRESSION: NEGATIVE KNEE SERIES Reading Location: [facility] CC: Dr. Jose Vargas DO; Dr. Constantine Ludwig MD ~ Rough And Truing Machine Operator: Signed [place] [facility] Diagnostic study note 06-14-2024 Note Date & Type Note Facility 06-14-2024 Radiology Diagnostic study note [facility] Imaging Services [address] [place], [place] [address] Knee 4 or More Views MR#: [id number] Acct: [id number] Name: HANNAH KERNS Rep #: [id number] 2 : 1940 F 83 From: Tahira Holman MD PCP: Dr. Constantine Ludwig MD Status: REG E R Study:Knee 4 or More Views Date of Exam: 06/14/24 Exam# [id number] Ordering Dr: Jose Matthews DO PROCEDURE: KNEE 4 OR MORE VIEWS 06/14/2024 REASON FOR EXAM: FALL TECHNIQUE: 4 views of the right knee COMPARISON: None. FINDINGS: Bones: Prior right total knee arthroplasty. No acute osseous fracture. Mild diffuse osseous demineralization. Joints: Total knee arthroplasty in satisfactory alignment. Effusion: No effusion. Soft tissues: Soft tissues are unremarkable. RAD/Knee 4 or More Views IMPRESSION: NEGATIVE KNEE SERIES Reading Location: [facility] CC: Dr. Jose Vargas DO; Dr. Constantine Ludwig MD ~ Rough And Truing Machine Operator: Signed [place] [facility] Diagnostic study note 06-14-2024 Note Date & Type Note Facility 06-14-2024 Radiology Diagnostic study note [facility] Imaging Services [address] [place] [address] Pelvis 1 or 2 Views MR#: [id number] Acct: [id number] Name: HANNAH KERNS Rep #: [id number] 1 : 1940 F 83 From: Tahira Holman MD PCP: Dr. Constantine Ludwig MD Status: REG E R Study:Pelvis 1 or 2 Views Date of Exam: 06/14/24 Exam# [id number] Ordering Dr: Jose Matthews DO PROCEDURE: PELVIS 1 OR 2 VIEWS 06/14/2024 REASON FOR EXAM: 83-year-old female, FALL TECHNIQUE: 1 view(s) of the pelvis. COMPARISON: L-spine radiographs 05/20/2024. FINDINGS: Hardware: Prior right total hip arthroplasty. Bones: No acute osseous fracture. No suspicious osseous lesion. 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 Soft tissues: Soft tissues are unremarkable. Other: Stable radiopaque foreign body overlying the right iliac crest. RAD/Pelvis 1 or 2 Views IMPRESSION: NO EVIDENCE OF PELVIC FRACTURE Reading Location: [facility] CC: Dr. Jose Vargas DO; Dr. Constantine Ludwig MD ~ Rough And Truing Machine Operator: Signed [place] [facility] Diagnostic study note 05-20-2024 Note Date & Type Note Facility 05-20-2024 Radiology Diagnostic study note [facility] Imaging Services [address] [place] [id number] L/S Spine Min 4 Views MR#: [id number] Acct: [id number] Name: DARSHANAVENTURAJEROMEHANNAH S Rep #: [id number] 2 : 1940 F 83 From: Dimitri Strauss DO PCP: Dr. Constantine Ludwig MD Status: REG C ELIANA Study:L/S Spine Min 4 Views Date of Exam: 05/20/24 Exam# [id number] Ordering Dr: Constantine Ludwig MD PROCEDURE: Lumbar spine radiographs REASON FOR EXAM: PAIN TECHNIQUE: 5 view(s) of the thoracic and lumbar spine. COMPARISON: None. FINDINGS: See impression RAD/L/S Spine Min 4 Views IMPRESSION: Vertebral body heights are within normal limits. Grade 1 anterolisthesis of L3-4 and L4-5. Mild lower thoracic dextroscoliosis. Moderate/advanced lower lumbar facet arthropathy from L3 through S1. Mild degenerative changes of the sacroiliac joints. Calcified abdominal aorta. Reading Location: [facility] CC: Dr. Constantine Ludwig MD ~ Rough And Truing Machine Operator: Signed [place] Discharge summary note 01-17-2024 Note Date & Type Note Facility 01-17-2024 [facility] DISCHARGE SUMMARY NAME ACCOUNT SEX AGE ADMIT DISCHARGE PT MED. RECORD# NUMBER DATE DATE TYPE SAUMYA [id number] F 83 11/05/23 Elias Gaspar [id number] ROOM: [facility] DATE OF : 1940 ATTENDING PHYSICIAN: Cecy Carrillo ATTENDING ORTHOPEDIC SURGEON: Dr. Froylan Louis. DATE OF ADMISSION: November 05, 2023 ESTIMATED DATE OF DISCHARGE: November 06, 2023 ADMITTING DIAGNOSES: 1. Right hip primary osteoarthritis. 2. Overweight. 3. Elevated blood pressure without diagnosis of hypertension. 4. Asthma. 5. Thyroid disease. 6. Depression. 7. Urge incontinence. 8. Osteoporosis. 9. Anxiety disorder. 10. Mild dementia. FINAL DIAGNOSES: 1. Right hip primary osteoarthritis, status post right total hip arthroplasty. 2. Overweight. 3. Elevated blood pressure without diagnosis of hypertension. 4. Asthma. 5. Thyroid disease. 6. Depression. 7. Urge incontinence. 8. Osteoporosis. 9. Anxiety disorder. 10. Mild dementia. HISTORY OF PRESENT ILLNESS: The patient has an ongoing history of right hip pain. After failing conservative measures, the patient opted to proceed with right total hip arthroplasty. HOSPITAL COURSE: She underwent the above-stated procedure yesterday. Intraoperatively was uneventful. For details, please see the dictated operative report. Page 1 of 2 HANNAH KERNS Discharge Summary HANNAH KERNS : 1940 She was transferred to the third floor at [facility]. Overnight was uneventful. She has been working with physical therapy. She has been doing well with physical therapy. Her initial plan was for discharge to a snf facility, as she does not have any family, she has dementia, and she is likely a fall risk at her home in a trailer. However, per Medicare guidelines, she did not meet any criteria to continue admission in the hospital and therefore does not meet the criteria to be discharged to a snf facility. She did do well with physical therapy today. Based on this, she ultimately has to be discharged to home. Medicine was consulted. They did treat her for conjunctivitis with drops, which were helpful. She also prior to admission was given prescriptions for oxycodone, famotidine, aspirin and Zofran to be used in the perioperative period. She was given instructions on these medications. She denies a history of DVT or pulmonary embolism, and therefore aspirin 81 mg twice daily will be used for one month postoperatively for DVT prevention. DISPOSITION: She was discharged to home on November 06, 2023. DISCHARGE INSTRUCTIONS/PLAN: The plan is to discharge to home on November 06, 2023 in stable condition. She will follow up in the office in 2 weeks for reassessment with repeat x-rays of the right hip and staple removal. She will be discharged with home health physical therapy, home health nursing, and a home health aide. Also, after speaking with case management, the plan will be for Adult Protective Services to go and evaluate her homestead. Dictated By: Cecy Carrillo PA-C 11/06/23 13:04 JOB #: [id number] Transcribed By: alfa 11/06/23 13:06 Electronically signed by: E-sign Cecy BROOKE 01/17/24 11:42 Page 2 of 2 HANNAH KERNS Discharge Summary [facility] Clinical Note 01-17-2024 Note Date & Type Note Facility 01-17-2024 Note [facility] PROGRESS NOTE NAME ACCOUNT SEX AGE ADMIT DISCHARGE PT MED. RECORD# NUMBER DATE DATE TYPE SAUMYA [id number] F 83 11/[birth year]/23MarMELISSA Gaspar [id number] ROOM: 307 DATE OF : 1940 DICTATING PHYSICIAN: Cecy Carrillo DATE OF SERVICE: November 06, 2023 ATTENDING ORTHOPEDIC SURGEON: Dr. Froylan Louis. SUBJECTIVE: This 83-year-old female is one day following a right total hip replacement. Intraoperatively was uneventful. She has been transferred to the third floor at [facility]. No adverse events overnight. The pain in the right hip has been well controlled. Dr. Bustos was managing some conjunctivitis. The drops have helped. Her eye pain and irritation have completely resolved. She currently denies chest pain, shortness of breath, dizziness or calf pain. She seems to be doing well overall. Her plan will be for discharge to a snf facility, as she lives alone at home and does not feel she could manage on her own and would likely be a fall risk, as she lives in a trailer. OBJECTIVE: Vitals show a temperature of 98.1, pulse 79, respirations 18, blood pressure 149/73, and spO2 of 92% on room air. The patient is alert and oriented x3, in no acute distress at rest, breathing easily without respiratory distress. Inspection of the right hip is with a clean and dry waterproof dressing intact without active drainage, erythema, warmth, or signs of infection. Negative Homans bilaterally without signs of DVT. Full range of motion of the bilateral ankles against resistance. The patient is able to actively plantar and dorsiflex the bilateral ankles against resistance. Sensation is intact to light touch. Pedal pulses are present and equal bilaterally. The patient is neurovascularly intact. DIAGNOSTIC DATA: Postoperative x-rays are reviewed and consistent with a press-fit right total hip arthroplasty with one acetabular screw. The prostheses are in good position without evidence of hardware failure or loosening. Skin collin are intact over the surgical site. BMP results are reviewed with an elevated blood glucose at 147. CBC results are reviewed with the white blood cell count at 9.4, hemoglobin 10.5, hemoglobin 32, and platelet count 274,000. ASSESSMENT/PLAN: 1. Status post right total hip arthroplasty, postoperative day #1. 2. Ledbetter as needed for pain control. 3. DVT prophylaxis with bilateral TEDs, SCDs and aspirin 81 mg twice daily for blood clot prevention. This was added. The patient denies a history of DVT or pulmonary Page 1 of 2 HANNAH KERNS Progress Note SAUMYA HANNAH Gaspar : 1940 embolism. 4. Begin PT/OT and weightbearing as tolerated on the right lower extremity with a walker and hip dislocation precautions. 5. Drop in hemoglobin and hematocrit, asymptomatic, likely a combination of blood loss and hemodilution. Anticipate resolution over the next several days. No indications for transfusion at this time. Continue to monitor. 6. Encourage incentive spirometry. 7. Continue postoperative medical management per Dr. Bustos. 8. Continue discharge planning with case management. 9. The patient is orthopedically stable and okay for discharge to a snf facility when she is cleared medically, having adequate pain control, and doing well with physical therapy. Dictated By: Cecy Carrillo PA-C 11/06/23 07:35 JOB #: [id number] Transcribed By: alfa 11/06/23 07:37 Electronically signed by: E-sign Cecy BROOKE 01/17/24 11:42 Page 2 of 2 HANNAH KERNS Progress Note [facility] Evaluation note Note Date & Type Note Facility Evaluation note No assessment information availa ble [facility] Work Phone: Hospital Discharge instructions Note Date & Type Note Facility Hospital Discharge instructions Additional Instructions Follow-up with your primary care physician. Tylenol and Motrin as needed for pain. You received Tylenol here in the emergency department. No Tylenol for 6 hours. [place] Work Phone: Reason for referral (narrative) Note Date & Type Note Facility Reason for referral (narrative) No reason for referral information available [facility] Work Phone: Summary Purpose Family History No Family History Records FoundNo Family History Records FoundNo Family History Records FoundNo Family History Records Found Advance Directives No Advanced Directives Records Found Advance Directive Response Recorded Date/ Time Living Will Yes June 14, 2024 12:20pm Do you have a Healthcare Power of Second Facing Baster? Yes June 14, 2024 12:20pm Name of Medical Power of Second Facing Baster Perri Savagemin her June 14, 2024 12:20pm Chief Complaint and Reason for Visit Chief Complaint Admit Date Mild cognitive impairment of uncertain o r unknown April 21, 2024 3:02pm ASYMPTOMATIC MENOPAUSAL STATE May 14, 2024 3:04pm Chief Complaint Admit Date Mild cognitive impairment of uncertain o r unknown April 21, 2024 3:02pm ASYMPTOMATIC MENOPAUSAL STATE May 14, 2024 3:04pm lower extrem June 14, 2024 12:1 9pm Additional Source Comments INFORMATION SOURCE (unrecogn ized section and content) DATE CREATED AUTHOR 08/22/2022 [facility] DATE CREATED AUTHOR AUTHOR'S ORGANIZ ATION 09/06/2024 [facility] DATE CREATED AUTHOR AUTHOR'S ORGANIZ ATION 09/06/2024 [facility] DATE CREATED AUTHOR AUTHOR'S ORGANIZ ATION 10/17/2024 [facility] Care Teams (unrecognized sec tion and content) Team Status: Active Member Role Status Dates Dr. Constantine Ludwig MD Primary Care Provider Active Team Status: Inactive Member Role Status Dates Reza Liao Primary Care Provider Active St art: March 19, 2024 End: March 19, 2024 Dr. Constantine Ludwig MD Attending Provider Active Start: March 19, 2024 End: March 19, 2024 Dr. Constantine Ludwig MD Referring Provider Active Start: March 19, 2024 End: March 19, 2024 Team Status: Inactive Member Role Status Dates Reza Liao Primary Care Provider Active St art: March 31, 2024 End: March 31, 2024 Dr. Constantine Ludwig MD Attending Provider Active Start: March 31, 2024 End: March 31, 2024 Team Status: Inactive Member Role Status Dates Dr. Constantine Ludwig MD Primary Care Provider Active Start: April 21, 2024 End: April 21, 2024 Dr. Constantine Ludwig MD Attending Provider Active Start: April 21, 2024 End: April 21, 2024 Dr. Constantine Ludwig MD Referring Provider Active Start: April 21, 2024 End: April 21, 2024 Team Status: Inactive Member Role Status Dates Dr. Constantine Ludwig MD Primary Care Provider Active Start: May 14, 2024 End: May 14, 2024 Dr. Constantine Ludwig MD Attending Provider Active Start: May 14, 2024 End: May 14, 2024 Dr. Constantine Ludwig MD Referring Provider Active Start: May 14, 2024 End: May 14, 2024 Team Status: Active Member Role Status Dates Dr. Constantine Ludwig MD Primary Care Provider Active Start: May 20, 2024 Dr. Constantine Ludwig MD Attending Provider Active Start: May 20, 2024 Team Status: Inactive Member Role Status Dates Dr. Constantine Ludwig MD Primary Care Provider Active Start: May 20, 2024 End: May 20, 2024 Dr. Constantine Ludwig MD Attending Provider Active Start: May 20, 2024 End: May 20, 2024 Team Status: Inactive Member Role Status Dates Dr. Constantine Ludwig MD Primary Care Provider Active Start: June 03, 2024 End: June 03, 2024 Dr. Constantine Ludwig MD Attending Provider Active Start: June 03, 2024 End: June 03, 2024 Dr. Constantine Ludwig MD Referring Provider Active Start: June 03, 2024 End: June 03, 2024 Team Status: Inactive Member Role Status Dates Dr. Constantine Ludwig MD Primary Care Provider Active Start: June 14, 2024 End: June 14, 2024 Dr. Jose Vargas DO Emergency Provider Activ e Start: June 14, 2024 End: June 14, 2024 Goals (unrecognized section and content) Goals may be documented in a n alternate sectionGoals may be documented in an alternate sectionGoals may be documented in an alternate sectionGoals may be documented in an alternate section FOR RECORDS PERTAINING TO PATIENTS WHO ARE OR HAVE BEEN ENROLLED IN A CHEMICAL DEPENDENCY/SUBSTANCEABUSE PROGRAM, SOME INFORMATION MAY BE OMITTED. This clinical summary was aggregated from multiple sources. Caution should be exercised in using it in the provision of clinical care. This summary normalizes information from multiple sources, and as a consequence, information in this document may materially change the coding, format and clinical context of patient data. In addition, data may be omitted in some cases. CLINICAL DECISIONS SHOULD BE BASED ON THE PRIMARY CLINICAL RECORDS. [employer] provides no warranty or guarantee of the accuracy or completeness of information in this document.
== END | disposition home or self-care (01) ==
LOC: BFHLAB 11:15
PROVIDERS: PCP Nurse Practitioner Family; Visit Provider Nurse Practitioner Family
DX: T14.90XA Injury, unspecified, initial encounter (principal); W57.XXXA Bitten or stung by nonvenomous insect and other nonvenomous arthropods, initial encounter
CPT/HCPCS: 36415; 86617

== ENCOUNTER → 2024-12-10 | Outpatient (CLI) | payer MEDICARE, BC, SELFPAY | END | disposition home or self-care (01) | PROVIDERS: PCP Nurse Practitioner Family; Referring Provider Nurse Practitioner Family; Visit Provider Nurse Practitioner Family | DX: N39.0 Urinary tract infection, site not specified (principal) | CPT/HCPCS: 87077; 87086; 87088; 87186 ==

== ENCOUNTER → 2025-01-12 | Outpatient (CLI) | payer MEDICARE, BC, SELFPAY ==
[2025-01-12 12:48] LABS: Mucous, Urine 0 SEEN /hpf (<or=2+); Red Blood Cells-Urine 0 SEEN /hpf (0-5)
[2025-01-12 14:12] LABS: Color, Urine Yellow (Yellow); Glucose, Dipstick Normal (Normal); Ketone-Dipstick Negative (Negative); Leukocyte Esterase-Dipstick Negative /ul (Negative); Nitrite-Dipstick Negative (Negative); Occult Blood-Urine 10 /ul (Negative); Protein-Dipstick Negative (Negative); Specific Gravity, Urine 1.015 (1.002-1.030); Urine Bilirubin Dipstick Negative (Negative)
[2025-01-12 14:19] LABS: Squamous Epithelial Cells - UA 0-5 SEEN /hpf (5-10)
== END | disposition home or self-care (01) ==
LOC: LABSPEC 12:24
PROVIDERS: PCP Nurse Practitioner Family; Referring Provider Nurse Practitioner Family; Visit Provider Nurse Practitioner Family
DX: N39.0 Urinary tract infection, site not specified (principal)
CPT/HCPCS: 81001; 87086; 87088